=== PATIENT | male | born 1945 | race African-American/Black ===

== ENCOUNTER 2016-12-21 10:58 | Inpatient (IN) | payer OTHER ==
[~2016-12-21] VITALS: Ht 175.3 cm; Wt 73.9 kg
--- NOTE | ~2016-12-21 | EKG ---
[address] [address] ELECTROCARDIOGRAM REPORT Name: CORDELIA MATHUR Room #: 422-P ADM IN M.R.#: [id number] Admission: 12/21/16 Attend Phys: Vineet Allen MD Discharge: Date of : 49 Report #: [id number] THIS REPORT FOR: //name// [facility] ED Test Date: 2016-12-21 Test Time: 11:42:47 Pat Name: CORDELIA MATHUR Department: Room: [facility] Gender: M Unbundler: ann : 1945 Requested By: Humberto López Order Number: [id number] MD: Teddy Wade Measurements Intervals [place] Rate: 84 P: 78 MA: 158 QRS: -11 QRSD: 80 T: 25 QT: 362 QTc: 428 Interpretive Statements Sinus rhythm Compared to ECG 09/16/2016 22:44:25 Sinus tachycardia no longer present Myocardial infarct finding no longer present Electronically Signed On 12-21-2016 20:26:32 CDT by Teddy Wade [email or web address] <ELECTRONICALLY SIGNED> By: Teddy Wade MD 12/21/162025 114 114 Teddy Wade MD /SAMPSON
--- NOTE | ~2016-12-21 | D ---
[facility] [place] [address] [place] [address] DISCHARGE SUMMARY Name: KEVANCORDELIA Laureano Room #: 422-P [facility] IN .R.#: [id number] Admission: 12/21/16 Attend Phys: Vineet Allen MD Discharge: Date of : 49 Report #: [id number] THIS REPORT FOR: //name// CC: Cathryn Allen DATE OF SERVICE: 12/23/2016 HISTORY OF PRESENT ILLNESS: The patient is a 71-year-old man who came to the hospital with melena. Please refer to the admission H and P for details. In brief, the patient's hemoglobin was found to be 6.2. The patient has chronic anemia, that is related to his chronic kidney disease stage 4. HOSPITALIZATION COURSE: The patient was hospitalized at [facility]. GI team was consulted. 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 The patient received units of PRBC, which resulted in improvement in hemoglobin, at 7.9. The patient's hospital stay was uneventful, and he had no more melena, and no complications. Currently, the patient's condition is acceptable. He will be discharged home with close followup. DISCHARGE DIAGNOSES: 1. Upper gastrointestinal bleed, likely cause arteriovenous malformations, that was found on EGD. Colonoscopy is recommended as needed, if the patient has recurrent bleed. 2. Chronic kidney disease stage 4. 3. Shingles, periorbital. Much better on Valtrex and Solu-Medrol, that was started as an outpatient. 4. Hypertension. DISPOSITION: The patient is discharged home. DISCHARGE MEDICATIONS: Please refer to the home medication list. In brief, the patient is discharged home on outpatient medications, as well as PPI, that was started here. FOLLOWUP PLAN: Follow up with the primary care physician in 1-2 weeks. By: 1204 [id number] Johnson Méndez MD /nt
[~2016-12-21 10:58] MED LIST: ALLOPURINOL 10100 M1 PO; ALPHAGAN P10 ML OPHTHALMIC; APAP650 PO; ASPIR 8181 MG PO; AZOPT OPHTH1 %/10 M1 OPHTHALMIC; CARVEDILOL12.5 MG PO; CIPRO250 M1 PO; DEMADEX20 MG PO; ENTECAVIR1 MG PO; EPIVIR 150MG T150 M1 PO; FLAGYL500 MG PO; FLEXERIL PO; FLOMAX0.4 MG PO; HARVONI 90-4001 EACH PO; HEPARIN 1010 UNIT/1 IV; HYDRALAZINE 10M10 MG PO; HYDROCODON-ACE1 EAC7 PO; IRON325 PO; ISOSORBIDE MONO10 MG PO; LEVAQUIN 750 M750 MG PO; LUMIGAN2.5 M1 OP; LUMIGAN2.5 M1 OPHTHALMIC; LUMIGAN2.5 ML OP; NORCO 5-325 TA1 EACH PO; PREDNISONE 10 M10 MG PO; PROTONIX40 M1 PO; RENVELA800 MG PO; UNICOMPLEX M TA1 TA1 PO; UNKNOWN EYE DROP; VIREAD300 MG PO; VITAMINC500 PO
[2016-12-21 11:02] VITALS: BP 113/65
[2016-12-21] MEDS ORDERED: VALACYCLOVIR1000 MG PO (11:44)
[2016-12-21] MEDS ORDERED: COREG6.25 MG PO (11:44)
[2016-12-21] MEDS ORDERED: MEDROL DOSPAK21 TA1 (11:45)
[2016-12-21 11:48] LABS: ABSOLUTE NEUTROPHILS 9.3 thou/uL (1.4-8.2); BASOPHILS 0.6 % (0.0-2.0); EOSINOPHILS 0.3 % (0.0-3.0); HEMATOCRIT 24.9 % (42.0-52.0); HEMOGLOBIN 7.8 gm/dL (14.0-18.0); LYMPHOCYTES 25.6 % (24.0-44.0); MCH 27.5 pg (26.0-34.0); MCHC 31.5 g/dL (28.0-37.0); MCV 87.1 fL (80.0-100.0); MONOCYTES 10.5 % (1.0-8.0); PLATELET COUNT 400 thou/uL (150-400); RBC 2.86 mil/uL (4.50-6.00); RDW 17.4 % (10.5-14.5); WBC 14.8 thou/uL (4.0-11.0)
[2016-12-21 11:50] LABS: MANUAL DIFF NO
[2016-12-21 11:56] LABS: ANION GAP 4 mmol/L (7-16); BUN 41 mg/dL (7-18); CALCIUM 7.8 mg/dL (8.5-10.1); CHLORIDE 106 mmol/L (98-107); CO2 22 mmol/L (21-32); GLUCOSE 111 mg/dL (74-106); POTASSIUM 4.4 mmol/L (3.5-5.1); SODIUM 132 mmol/L (136-145)
[2016-12-21 12:07] LABS: ALBUMIN 1.9 g/dL (3.4-5.0); ALKALINE PHOSPHATASE 48 U/L (46-116); DIRECT BILIRUBIN < 0.1 mg/dL (<0.1-0.3); NT-PRO BRAIN NAT PEPTIDE 1045 pg/mL (<300); SGOT 16 U/L (15-37); SGPT 12 U/L (30-65); TOTAL BILIRUBIN 0.2 mg/dL (<0.1-1.0); TROPONIN-I < 0.04 ng/mL (<0.04-0.07)
[2016-12-21 12:10] LABS: URINE BILIRUBIN NEGATIVE (Negative); URINE BLOOD 1+ (Negative); URINE COLOR YELLOW; URINE GLUCOSE-RANDOM* NEGATIVE (Negative); URINE KETONES NEGATIVE (Negative); URINE NITRITE NEGATIVE (Negative); URINE PROTEIN (DIPSTICK) 2+ (Negative); URINE UROBILINOGEN 0.2 E.U./dl (0.2-1.0)
[2016-12-21 12:16] LABS: HYALINE CASTS >10 Many /LPF (None Seen); SQUAMOUS None Seen /LPF (0-3)
[2016-12-21 12:17] LABS: BACTERIA 1-9 Few /HPF (None Seen); CASTS None Seen /LPF (None Seen); CRYSTALS None Seen /LPF (None Seen); URINE RBC 0-2 Rare /HPF (0-2); URINE WBC 0-5 Rare /HPF (0-5)
[2016-12-21 14:45] VITALS: BP 103/70
[2016-12-21 19:32] VITALS: BP 111/67
[2016-12-22 00:34] LABS: RBC 2.23 mil/uL (4.50-6.00)
[2016-12-22 00:36] LABS: ABSOLUTE NEUTROPHILS 5.6 thou/uL (1.4-8.2); BASOPHILS 0.3 % (0.0-2.0); MCH 28.2 pg (26.0-34.0); MCV 88.1 fL (80.0-100.0); MONOCYTES 9.8 % (1.0-8.0); POLYS 49.9 % (36.0-66.0); RDW 17.3 % (10.5-14.5); WBC 11.2 thou/uL (4.0-11.0)
[2016-12-22 00:39] LABS: HEMATOCRIT 19.7 % (42.0-52.0)
[2016-12-22 00:40] LABS: MANUAL DIFF NO; PLATELET COUNT 318 thou/uL (150-400)
[2016-12-22 00:41] LABS: HEMOGLOBIN 6.3 gm/dL (14.0-18.0)
[2016-12-22 03:56] VITALS: BP 110/69
[2016-12-22 05:49] LABS: CALCIUM 7.5 mg/dL (8.5-10.1); CREATININE 2.9 mg/dL (0.7-1.3); MAGNESIUM 1.9 mg/dL (1.8-2.4)
[2016-12-22 05:51] LABS: POTASSIUM 5.5 mmol/L (3.5-5.1)
[2016-12-22 07:30] VITALS: BP 105/67
[2016-12-22 14:16] VITALS: BP 102/67; BP 98/59
[2016-12-22 15:34] VITALS: BP 95/62
[2016-12-22 20:00] VITALS: BP 107/66
[2016-12-22 20:58] VITALS: BP 107/66; BP 108/64; BP 112/67
[2016-12-23 04:00] VITALS: BP 115/77
[2016-12-23 07:37] VITALS: BP 111/71
[2016-12-23 09:01] LABS: ABSOLUTE NEUTROPHILS 4.5 thou/uL (1.4-8.2); BASOPHILS 0.5 % (0.0-2.0); EOSINOPHILS 1.6 % (0.0-3.0); HEMOGLOBIN 7.9 gm/dL (14.0-18.0); LYMPHOCYTES 27.7 % (24.0-44.0); MCH 28.9 pg (26.0-34.0); MCHC 32.8 g/dL (28.0-37.0); MCV 88.2 fL (80.0-100.0); MONOCYTES 10.2 % (1.0-8.0); PLATELET COUNT 307 thou/uL (150-400); RBC 2.72 mil/uL (4.50-6.00); RDW 16.5 % (10.5-14.5); WBC 7.5 thou/uL (4.0-11.0)
[2016-12-23 09:09] LABS: MANUAL DIFF NO
[2016-12-23 09:12] LABS: CALCIUM 7.9 mg/dL (8.5-10.1); CREATININE 2.7 mg/dL (0.7-1.3)
[2016-12-23] MEDS ORDERED: PANTOPRAZOLE SO40 M1 PO (12:07)
[2016-12-23 12:42] VITALS: BP 111/71
== END 2016-12-23 14:04 | disposition home or self-care (01) | DRG 377 ==
LOC: ER 10:58 → 4E 13:35 → EROBS 13:35 → 4E 14:17
PROVIDERS: Internal Medicine; Internal Medicine Endocrinology, Diabetes & Metabolism; Nurse Practitioner
PROC: 0DJ08ZZ Inspection of Upper Intestinal Tract, Via Natural or Artificial Opening Endoscopic (ICD-10-PCS; principal; 2016-12-22)
PROC: 30233N1 Transfusion of Nonautologous Red Blood Cells into Peripheral Vein, Percutaneous Approach (ICD-10-PCS; 2016-12-22)
DX: K55.21 Angiodysplasia of colon with hemorrhage (principal); E43 Unspecified severe protein-calorie malnutrition; N18.5 Chronic kidney disease, stage 5; I12.0 Hypertensive chronic kidney disease with stage 5 chronic kidney disease or end stage renal disease; B02.30 Zoster ocular disease, unspecified; H40.9 Unspecified glaucoma; D63.1 Anemia in chronic kidney disease; B18.2 Chronic viral hepatitis C; N40.0 Benign prostatic hyperplasia without lower urinary tract symptoms; Z88.8 Allergy status to other drugs, medicaments and biological substances; Z90.01 Acquired absence of eye; Z87.442 Personal history of urinary calculi; Z86.19 Personal history of other infectious and parasitic diseases; Z87.891 Personal history of nicotine dependence
CPT/HCPCS: 10183; 62110; 62900; 70005

== ENCOUNTER → 2017-01-09 | Outpatient (CLI) | payer OTHER ==
[~2017-01-09] MED LIST changes: +COREG6.25 MG PO; +MEDROL DOSPAK21 TA1; +PANTOPRAZOLE SO40 M1 PO; +VALACYCLOVIR1000 MG PO
== END ==
LOC: ULTRA 07:09
DX: B19.20 Unspecified viral hepatitis C without hepatic coma (principal); K80.80 Other cholelithiasis without obstruction; N28.1 Cyst of kidney, acquired

== ENCOUNTER → 2017-05-19 | Outpatient (CLI) | payer OTHER ==
[~2017-05-19] VITALS: Ht 177.8 cm; Wt 80.7 kg
--- NOTE | ~2017-05-19 | S ---
[facility] [place] [address] SURGICAL PATH RPT PROCEDURE Name: CORDELIA MATHUR Room #: REG PADMINI Moyer#: [id number] Admission: 05/19/17 Date of : 49 Discharge: Report #: [id number] Path Case #: [id number] PATHOLOGY REPORT COLLECTION DATE: 05/19/2017 RECEIVED DATE: 05/19/2017 SUBMITTING PHYS: Dr. Los Martinez OTHER PHYS: Dr. Cathryn Bernal * AMENDED (CORRECTED) REPORT * SPECIMEN(S) RECEIVED: A.Antrum bx R/O H. pylori * * * * * * * * * * * * FINAL DIAGNOSIS: 05/21/2017 AMENDED REPORT: This amendment is issued to correct the patient's name on the report to match the insurance card. The remainder of the report remains unchanged. Gastric mucosa, antrum, endoscopic biopsy: - Mild chronic active gastritis with features of reactive gastropathy. - Negative for intestinal metaplasia or atrophy. - Negative for Helicobacter pylori. (IUV:pit; 05/20/2017) COMMENT: Well controlled Helicobacter pylori immunohistochemical stain performed on block A1 - Negative. (IUV:pit; 05/20/2017) PATHOLOGIST: Estefany Stevens M.D. REPORT ELECTRONICALLY SIGNED BY: Estefany Stevens M.D. DATE/TIME: 05/22/2017 13:09 * * * * * * * * * * * * GROSS PATHOLOGY: Received in formalin labeled "Cordelia Mathur, BX antrum," is a segment of rhoades soft tissue measuring 0.7 cm in maximum dimension. The specimen is submitted entirely in cassette A1. (TSD; 05/19/2017) CLINICAL HISTORY: Pre-OP DX: GI bleed [facility] [address] [place] [address] SURGICAL PATH RPT PROCEDURE Name: CORDELIA MATHUR [id number] Admission: 05/19/17 Date of : 49 Discharge: Report #: [id number] Path Case #: [id number] Post-OP DX: Anemia, esophagitis, small jejunal AVM, varices INITIAL CPT CODE(S): A; 91218, 55568 Professional services performed by [facility] at [address] , [place] [address] Technical services performed by [facility] at [address] [place] [address], [facility] [address] [address]. [facility] [address] [place] [address] PHONE: [phone] DIRECTOR: Carl Miguel M.D. * * * END OF REPORT * * *
== END | disposition home or self-care (01) ==
LOC: GI 06:46
DX: K57.30 Diverticulosis of large intestine without perforation or abscess without bleeding (principal); K64.8 Other hemorrhoids; K92.2 Gastrointestinal hemorrhage, unspecified; Z88.8 Allergy status to other drugs, medicaments and biological substances; Z98.890 Other specified postprocedural states
CPT/HCPCS: 62110; 62900

== ENCOUNTER 2017-07-19 08:08 | Inpatient (IN) | payer OTHER ==
[~2017-07-19] VITALS: Ht 177.8 cm; Wt 81.2 kg
--- NOTE | ~2017-07-19 | HC ---
[facility] [place] [address] CONSULTATION Name: MATHURCORDELIA Laureano Room #: 437-P [facility] IN .R.#: [id number] Admission: 07/19/17 Attend Phys: Vineet Allen MD Discharge: Date of : 49 Report #: [id number] THIS REPORT FOR: //name// CC: Cathryn Allen REASON FOR CONSULTATION: Elevated creatinine. REASON FOR PRESENTATION: Abdominal pain. HISTORY OF PRESENT ILLNESS: A 72-year-old with multiple medical problems, most significant is chronic kidney disease with a baseline creatinine of around 2.5, heart failure with an ejection fraction of around 20%. He is also known to have lymphoproliferative disorder. He was treated few weeks ago for what seems to be appendicitis and he was deemed to be a nonsurgical candidate. He represented with abdominal pain in the right lower quadrant. This was associated with nausea and vomiting. This has been worsening in the last 24-[address] of the abdomen and pelvis revealed marked inflammatory changes. Surgical consultation was obtained. The patient reported to low grade fever. No urinary symptoms in the form of frequency or urgency. I am being consulted to manage his chronic kidney disease. PAST MEDICAL HISTORY: 1. CKD. 2. Nephrolithiasis. 3. Hypertension. 4. BPH. 5. Cardiomyopathy with an ejection fraction of 20%. 6. Shingles. 7. jejunal AV malformations. 8. History of hepatitis B and C. 9. Anemia. 10. Lymphoproliferative disorder. 11. Remote history of appendicitis. ALLERGIES: RITUXAN. MEDICATIONS: 1. Tamsulosin. 2. Carvedilol. 3. Protonix. 4. Renvela. REVIEW OF SYSTEMS: GENERAL: Low grade fever. CARDIOVASCULAR: No chest pain or palpitation. PULMONARY: No cough or hemoptysis. [facility] [address] [place] [address] CONSULTATION Name: CORDELIA MATHUR Laureano Room #: 437-P [facility] IN [facility].#: [id number] Admission: 07/19/17 Attend Phys: Vineet Allen MD Discharge: Date of : 49 Report #: [id number] GASTROINTESTINAL: As per the history of present illness. GENITOURINARY: No frequency. No urgency. NEUROLOGIC: No weakness. No seizure. SKIN: No rash or ulcerations. SOCIAL HISTORY: He denies drug or alcohol abuse. He has a good social support. He lives alone. FAMILY HISTORY: Hypertension. PHYSICAL EXAMINATION: GENERAL: Alert, oriented, seems to be in mild distress. VITAL SIGNS: Blood pressure 120/72. HEAD AND NECK: No jugular venous distention. CHEST: Clear to auscultation. CARDIOVASCULAR: Regular, with no rub. ABDOMEN: Soft with tenderness in the right lower quadrant. EXTREMITIES: Lower extremities, no edema. LABORATORY DATA: Reviewed. White blood cell count is 13.6. Sodium 134, creatinine is 3.6. UA, +1 protein. Looking back at the patient's previous levels, it does look like that he has a value of 2.9 back in December of this year when it comes to his creatinine. IMAGING: Including a CT abdomen and pelvis reviewed. ASSESSMENT, IMPRESSION, AND PLAN: 1. Acute kidney injury. 2. Chronic kidney disease. 3. Advanced heart failure. 4. Anemia. 5. Abnormal CT with marked inflammatory changes. 6. The patient's kidney function deterioration is expected in the of his inflammatory issues. As for now, we will continue with the intravenous fluid. 7. Strict input and output. 8. Avoid nephrotoxins. 9. Antibiotics. 10. Watch volume status. 11. Surgical evaluation is ongoing and we will defer further management for his inflammatory issues to the surgical team. Of note, this is the fact that he has low grade B cell lymphoma. He had required dialysis in the past and was dialyzing every Thursday, Thursday and Thursday. It is not clear to me the [facility] [address] [place] [address] CONSULTATION Name: KEVANCORDELIA Laureano Room #: 437-P [facility] IN .R.#: [id number] Admission: 07/19/17 Attend Phys: Vineet Allen MD Discharge: Date of : 49 Report #: [id number] discrepancy in the ejection fraction as there is a new echo reporting that the patient's ejection fraction is in the 50-60%. We will continue to follow along. <ELECTRONICALLY SIGNED> By: Nitza Rosa MD 07/24/17 0953 1149 1339 Nitza Rosa, /nt
--- NOTE | ~2017-07-19 | EKG ---
[address] [place] [address] ELECTROCARDIOGRAM REPORT Name: CORDELIA MATHUR Room #: 437-P ADM IN M.R.#: [id number] Admission: 07/19/17 Attend Phys: Vineet Allen MD Discharge: Date of : 49 Report #: [id number] THIS REPORT FOR: //name// [facility] Test Date: 2017-08-10 Test Time: 12:18:27 Pat Name: CORDELIA MATHUR Department: Room: 437 P Gender: M Guide Changer: Matt BETTS : 1945 Requested By: Kuldeep Rodriguez Order Number: [id number] MD: Teddy Wade Measurements Intervals [place] Rate: 75 P: 56 DC: 176 QRS: -23 QRSD: 87 T: 13 QT: 387 QTc: 433 Interpretive Statements Sinus rhythm Consider left ventricular hypertrophy Compared to ECG 12/21/2016 11:42:47 No significant changes Electronically Signed On 08-10-2017 14:03:18 [employer] by Teddy Wade [email or web address] <ELECTRONICALLY SIGNED> By: Teddy Wade MD 08/10/17 1403 17 17 Teddy Wade MD /SAMPSON
--- NOTE | ~2017-07-19 | 2DMMODE ---
[facility] [address] [place] [address] 2 D/M-MODE ECHOCARDIOGRAM Name: CORDELIA MATHUR Room #: 437-P [facility] IN ..#: [id number] Admission: 07/19/17 Attend Phys: Hannah Gomes Discharge: Date of : 49 Date of Service: 07/19/17 1630 Report #: [id number] THIS REPORT FOR: //name// APPROVED REPORT Study performed: 07/19/2017 16:11:37 EXAM: Comprehensive 2D, Doppler, and color-flow Echocardiogram Patient Location: Bedside Room #: [facility] Status: on-call BSA: 2.06 HR: 106 bpm BP: 166/101 mmHg Rhythm: Tachycardia Other Information Study Quality: Adequate Indications Pre Op. LV function. History of non-ischemic cardiomyopathy with an EF of 20%. Hx: HTN, CO 2D Dimensions RVDd: 40.05 mm LVEF(%): 40.88 (>50%) IVSd: 10.77 (7-11mm) LVOT Diam: 21.70 (18-24mm) LVDd: 49.23 mm PWd: 10.23 (7-11mm) Ascending Ao: 32.90 (22-36mm) LVDs: 39.37 (25-40mm) Aortic Root: 32.96 mm Parikh's LVEF: 40.88 % Volumes Left Atrial Volume (Systole) Single Plane 4CH: 46.45 mL Single Plane 2CH: 48.50 mL LA ESV Index: 26.00 mL/m2 Aortic Valve AoV Peak Gal.: 1.43 m/s AO Peak Gr.: 8.23 mmHg Mitral Valve E/A Ratio: 0.8 MV Decel. Time: 151.41 ms MV E Max Gal.: 0.85 m/s [facility] [address] 2 D/M-MODE ECHOCARDIOGRAM Name: CORDELIA MATHUR Room #: 437-P [facility] IN ..#: [id number] Admission: 07/19/17 Attend Phys: Hannah Gomes Discharge: Date of : 49 Date of Service: 07/19/17 1630 Report #: [id number] MV A Gal.: 1.01 m/s MV PHT: 43.91 ms IVRT: 55.36 ms Pulmonary Valve PV Peak Gal.: 1.24 m/s PV Peak Gr.: 6.14 mmHg Tricuspid Valve TR Peak Gal.: 2.82 m/s RAP Estimate: 5.00 mmHg TR Peak Gr.: 31.87 mmHg PA Pressure: 37.00 mmHg Left Ventricle The left ventricle is normal size. There is normal left ventricular wall thickness. Left ventricular systolic function is normal. LVEF is 50-55%. Mild diastolic dysfunction is present (impaired relaxation pattern). Right Ventricle The right ventricle is normal size. The right ventricular systolic function is normal. Atria The left atrium size is normal. The right atrium size is normal. Aortic Valve The aortic valve is normal in structure. No aortic regurgitation is present. There is no aortic valvular stenosis. Mitral Valve The mitral valve is normal in structure. Trace mitral regurgitation. No evidence of mitral valve stenosis. Tricuspid Valve The tricuspid valve is normal in structure. Trace to mild tricuspid regurgitation. Estimated PAP is 35-40mmHg. Pulmonic Valve The pulmonary valve is normal in structure. Trace pulmonic regurgitation. Great Vessels The aortic root is normal in size. The ascending aorta is normal in size. IVC is normal in size and collapses >50% with inspiration. [facility] [address] [place] [address] 2 D/M-MODE ECHOCARDIOGRAM Name: CORDELIA MATHUR Room #: 437-P [facility] IN .R.#: [id number] Admission: 07/19/17 Attend Phys: Hannah Gomes Discharge: Date of : 49 Date of Service: 07/19/17 1630 Report #: [id number] Pericardium There is no pericardial effusion. <Conclusion> The left ventricle is normal size. LVEF is 50-55%. The right ventricle is normal size. The right ventricular systolic function is normal. The aortic valve is normal in structure. The mitral valve is normal in structure. Trace mitral regurgitation. The tricuspid valve is normal in structure. Trace to mild tricuspid regurgitation. Estimated PAP is 35-40mmHg. The pulmonary valve is normal in structure. Trace pulmonic regurgitation. There is no pericardial effusion. <ELECTRONICALLY SIGNED> By: Kwame Spencer MD 07/19/17 163 163 29 Kwame Spencer MD /INF
--- NOTE | ~2017-07-19 | HC ---
[facility] [place] [address] [address] CONSULTATION Name: KEVANCORDELIA Laureano Room #: 437-P [facility] IN ..#: [id number] Admission: 07/19/17 Attend Phys: Vineet Allen MD Discharge: Date of : 49 Report #: [id number] THIS REPORT FOR: //name// CC: Cathryn Allen DATE OF SERVICE: 07/19/2017 REFERRING PROVIDER: Vineet Allen MD. REASON FOR CONSULT: Abdominal pain. HISTORY OF PRESENT ILLNESS: The patient is a 72-year-old male who has been seen by our service on 2 prior occasions slightly greater than one year ago with complaints of right lower quadrant abdominal pain. The patient was evaluated at that time with a CT scan of the abdomen and pelvis with oral contrast showing no filling of the appendix thereby signifying an acute appendicitis. The patient was treated with antibiotic therapy while we awaited Cardiology consultation as the patient has had a markedly decreased ejection fraction of 20% on a prior evaluation. As the patient was undergoing cardiac workup, his abdominal complaints improved markedly and he had a normal white blood cell count. As the patient was treated conservatively for a presumed diagnosis of acute appendicitis and had no complication from that with continuing to improve, he was discharged home on antibiotics, doing well. The patient did present approximately 6 months ago with an upper GI bleed from an AVM of the jejunum treated by endoscopy. The patient was in his usual state of health once again until yesterday when he developed right periumbilical abdominal pain with diarrhea and mild nausea, which improved over the past 24 hours. The patient presented for evaluation earlier today with findings on CT scan of marked inflammation in the right mid abdomen of either an acute appendicitis or less likely a proximal transverse colon issue as the transverse colon is exceedingly redundant and mobile and lies right near the medial aspect of the cecum. The patient has been admitted and given antibiotic therapy and I am asked to evaluate. On exam at the bedside today, the patient has minimal tenderness to palpation. He is afebrile with a regular rhythm. No tachycardia and is hungry. 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 Finally, he has chronic kidney disease stage IV with a baseline creatinine in the range of 3.5. [address] [address] CONSULTATION Name: KEVANCORDELIA C Room #: 437-P [facility] IN ..#: [id number] Admission: 07/19/17 Attend Phys: Vineet Allen MD Discharge: Date of : 49 Report #: [id number] HOME MEDICATIONS: Protonix, brinzolamide eye drops, bimatoprost eyedrops, sevelamer, carvedilol and Flomax. ALLERGIES: RITUXIMAB, which caused tachycardia and shortness of breath. FAMILY HISTORY: Reviewed and noncontributory. SOCIAL HISTORY: The patient does not currently use tobacco, alcohol or illicit drugs. REVIEW OF SYSTEMS: GENERAL: The patient denies nocturnal fevers or chills. HEENT: No change in vision, change in hearing. NECK: No swelling or difficulty swallowing. HEART: No chest pain or palpitations. LUNGS: No cough or shortness of breath. ABDOMEN: Mild abdominal pain with loose stools and resolved nausea. GENITOURINARY: No dysuria or hematuria. ENDOCRINE: No polyuria, polydipsia. HEMATOLOGIC: No history of bleeding or easy bruising. EXTREMITIES: No history of weakness or limited range of motion. NEUROLOGIC: No history of syncope or near syncopal episodes. SKIN AND INTEGUMENT: No history of abnormal lesions or moles. PSYCHIATRIC: No history of anxiety or depression. PHYSICAL EXAMINATION: VITAL SIGNS: Temperature is 98.0, pulse 75, respirations 15, blood pressure 162/87. He stands 5 feet 10 inches tall and weighs 194 pounds. GENERAL: He is alert and oriented, in no acute distress. HEENT: Normocephalic, atraumatic. His one pupil is equal and round, reactive to light. 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 NECK: Supple, without lymphadenopathy. Trachea is midline. HEART: Regular rate and rhythm. LUNGS: Clear to auscultation bilaterally. GASTROINTESTINAL: Abdomen soft and nondistended. He is minimally tender to deep palpation in the right mid abdomen, but does not have any guarding, rebound or peritoneal signs or symptoms. GENITOURINARY: Normal external male genitalia. EXTREMITIES: No clubbing, cyanosis or edema. NEUROLOGIC: Cranial nerves 2-12 are grossly intact. PSYCHIATRIC: Normal mood and affect. SKIN AND INTEGUMENT: No abnormal lesions or moles. LABORATORY AND X-RAY DATA: CBC shows white blood cell count of 8.6 thousand, hemoglobin 9.2, platelets 253,000. Creatinine is 3.6, which is about his baseline. Liver function enzymes are normal. Albumin is exceedingly low at [facility] [address] [place] [address] CONSULTATION Name: CORDELIA MATHUR Room #: 437-P [facility] IN [facility]#: [id number] Admission: 07/19/17 Attend Phys: Vineet Allen MD Discharge: Date of : 49 Report #: [id number] 2.0, lactic acid normal at 1.1. Urinalysis negative. CT scan of the abdomen and pelvis as per HPI shows moderate edema in the region of the medial cecum at the location where the appendix would be. The cecum lies in the upper iliac fossa with the hepatic flexure lying in normal position, but the proximal transverse colon lying anterior to the cecum. ASSESSMENT AND PLAN: A 72-year-old male with a 24-hour history of right mid abdominal pain with a prior history of appendicitis treated conservatively with antibiotic therapy. At the present time, the patient appears comfortable, states he is hungry and has very minimal pain to deep palpation. His white blood cell count is normal. It is likely that he either has a recurrent appendicitis or less likely a proximal transverse colon diverticulitis, especially in light of his prior immunosuppressed history from his lymphoproliferative disorder. It is not possible to rule out lingering typhlitis. That being said, at this time, I am awaiting Cardiology evaluation as he does have a prior history of nonischemic cardiomyopathy with an ejection fraction of 20% and after which we will have a recurrent discussion with the patient and his family regarding to proceed with operative intervention versus watchful waiting with antibiotic therapy in a conservative manner. As this will likely take time to get Cardiology evaluation once again, we will continue antibiotic therapy at this time. Reviewing the CT scan images, it shows marked inflammation which could pose a significant challenge intraoperatively with the high degree of potential risk for damage to the proximal transverse colon if this is truly just an appendicitis and raises the risk of an ileostomy if damage should occur to the proximal transverse colon. In light of that, the patient's family and himself request conservative management with antibiotic therapy and watchful waiting to see how he does. I think this is a completely reasonable approach at this time. I will continue antibiotics with serial abdominal exams and repeat labs tomorrow with a differential and a CBC to evaluate further. I sincerely appreciate this consult. I will follow closely and leave any further recommendations in the patient's chart as appropriate. <ELECTRONICALLY SIGNED> By: Sonja Clark MD, FACS 07/20/17 0933 1402 0027 Sonja Clark MD, FACS /nt
--- NOTE | ~2017-07-19 | H ---
[facility] [place] [address] HISTORY AND PHYSICAL Name: KEVANCORDELIA Laureano Room #: 437-P ADM IN .R.#: [id number] Admission: 07/19/17 Attend Phys: Vineet Allen MD Discharge: Date of : 49 Report #: [id number] THIS REPORT FOR: //name// CC: Cathryn Allen DATE OF SERVICE: 07/19/2017 CHIEF COMPLAINT: Right lower quadrant abdominal pain. HISTORY OF PRESENT ILLNESS: The patient is a 72-year-old male with history of multiple medical issues in the past including cardiomyopathy, ejection fraction of 20%, chronic kidney disease, glaucoma, hypertension, benign prostatic hypertrophy, hepatitis, and lymphoproliferative disorder, presented to the Emergency Room complaining of right lower quadrant abdominal pain. Symptoms started this morning at around 5:00 a.m. It is localized in the right lower quadrant. It has been associated with nausea and vomiting. No history of any diarrhea, no history of any fever or chills. He had a CT scan of the abdomen and pelvis done, which showed appendicitis. The patient apparently had a history of appendicitis 2 years ago and he was treated with IV antibiotic. No surgical intervention was done. No dizziness. No fever or chills. PAST MEDICAL HISTORY: Significant for lymphoproliferative disorder. 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 History of hepatitis B, C. History of chronic anemia, history of left eye removal. Kidney stone in . History of glaucoma, history of hypertension, benign prostatic hypertrophy, nonischemic cardiomyopathy, ejection fraction of 20%, chronic kidney disease. He has had a cystoscopy for kidney stone in the past. He was also treated for shingles. ALLERGIES: ALLERGIC TO RITUXAN, PLEASE LOOK AT THE NURSING DOCUMENTATION FOR THE TYPE OF ALLERGY. MEDICATIONS: Reviewed, please look at the nursing documentation. SOCIAL HISTORY: He lives alone and ambulates with a cane. No smoking, alcohol abuse, or illicit drug abuse. FAMILY HISTORY: Significant for hypertension. REVIEW OF SYSTEMS: CONSTITUTIONAL: No recent weight loss, weight gain. EYES: No change in vision. THROAT: Denies any sore throat. [facility] [address] [place] [address] HISTORY AND PHYSICAL Name: CORDELIA MATHUR Room #: 437-P [facility] IN [facility]#: [id number] Admission: 07/19/17 Attend Phys: Vineet Allen MD Discharge: Date of : 47 Report #: [id number] CARDIOVASCULAR: No chest pain, no dizziness, no palpitations. RESPIRATORY: No cough or expectoration. GASTROINTESTINAL: As above. GENITOURINARY: No dysuria, hematuria. NEUROLOGIC: No focal numbness or weakness of the extremity. PSYCHIATRIC: No anxiety or depression. The 12-point review of systems is negative other than the positive and negative dictated in the history of present illness and the review of systems. PHYSICAL EXAMINATION: VITAL SIGNS: Blood pressure is 162/87, heart rate of 70 per minute, afebrile. GENERAL: The patient is awake and alert, not in acute respiratory distress. HEENT: Pupils is around 3 mm, reactive to light on the right eye. Throat appears normal. NECK: Supple. No JVD, no bruit, no lymphadenopathy. CARDIOVASCULAR SYSTEM: S1, S2, negative S3, no murmur. CHEST: Clear on auscultation. ABDOMEN: Soft, bowel sounds present, no mass, no organomegaly. There is tenderness in the right lower quadrant, no rebound tenderness. No guarding. PERIPHERY: No pedal edema. No calf tenderness. Dorsalis pedis 1+. NEUROLOGICAL: No gross motor or sensory deficit. LABORATORY DATA: Reviewed. White count is 8.6, hemoglobin is 9.2, platelet is 253. Chemistry showed sodium of 134, BUN and creatinine are 28 and 3.6. His last creatinine on 12/23/2016 was 2.7, which is close to his baseline. His baseline creatinine is around 2.7. IMAGING STUDIES: CT of the abdomen and pelvis showed inflammatory changes suggesting appendicitis. There is bibasilar atelectasis and possible left lower lobe pneumonitis. ASSESSMENT AND PLAN: 1. Acute appendicitis. The patient will be kept n.p.o. We will continue with IV fluids and IV Zosyn. Surgery has been contacted from the Emergency Room. 2. Cardiomyopathy, ejection fraction of 20%, stable. We will continue with Coreg. 3. Deep venous thrombosis prophylaxis. Sequential compression devices on the legs for deep venous thrombosis prophylaxis. 4. Acute kidney injury, acute renal failure. His creatinine is up to 3.6. His baseline creatinine is about 2.7. We will continue with IV fluids. We will repeat his labs in the morning. The patient will need gentle IV hydration because of his cardiomyopathy. 5. History of lymphoproliferative disorder and also chronic anemia. 6. History of glaucoma. [facility] [address] [place] [address] HISTORY AND PHYSICAL Name: CORDELIA MATHUR Room #: 437-P [facility] IN .R.#: [id number] Admission: 07/19/17 Attend Phys: Vineet Allen MD Discharge: Date of : 47 Report #: [id number] Treatment plan has been explained to the patient and the patient's family at bedside in detail. <ELECTRONICALLY SIGNED> By: Vineet Allen MD 07/19/17 1331 1050 1114 Vineet Allen MD /nt
--- NOTE | ~2017-07-19 | HC ---
[facility] [place] [address] [place] [address] CONSULTATION Name: MATHURCORDELIA Laureano Room #: 437-P [facility] IN ..#: [id number] Admission: 07/19/17 Attend Phys: Vineet Allen MD Discharge: Date of : 47 Report #: [id number] THIS REPORT FOR: //name// CC: Cathryn Allen REASON FOR CONSULTATION: I was asked to evaluate concerning acute appendicitis. HISTORY OF PRESENT ILLNESS: The patient was a 72-year-old who presented on 07/19 with acute onset of right lower quadrant abdominal pain. About a year ago, he had had similar presentation and was diagnosed with acute appendicitis. He was treated conservatively with antibiotic therapy noting that the patient had B cell lymphoproliferative disorder and ejection fraction of 20%. He did improve from this and was doing reasonably well. Subsequently, he had a jejunal bleed due to an AVM about 6 months ago. Now presents with about a 24-hour history of abdominal pain associated with diarrhea. Pain radiated to the right lower quadrant. He presented to the Emergency Room. CT scan showed evidence of marked inflammation in the right lower quadrant with no feeling of the appendix and a fecalith present. The transverse colon was very redundant and mobile and was positioned near the medial aspect of the cecum. It was not totally clear that his pain is all residing from the appendix, but this is still the treating diagnosis. He has remained on Zosyn and metronidazole. No fever, chills or sweats. He has had several loose stools, but that has improved. He has had a minimally productive cough. Poor oral intake. Followup CT scan did show evidence of basilar infiltrates and appendicolith associated with his acute appendicitis. PAST MEDICAL HISTORY: Hepatitis B and hepatitis C associated with cirrhosis; B cell lymphoproliferative disorder, status post chemotherapy; ischemic cardiomyopathy; previously EF of 20%, repeat study this hospital stay shows 50%-55% by echocardiogram. H. pylori, jejunal AVM, chronic kidney disease, gastric ulcer and glaucoma. FAMILY HISTORY: Noncontributory. SOCIAL HISTORY: Nonsmoker, no significant alcohol intake. ALLERGIES: RITUXIMAB. MEDICATIONS: As noted on his MAR now on Zosyn. The metronidazole has been discontinued. REVIEW OF SYSTEMS: As noted above with no additions. He has had no dysuria or frequency. No rash or decubiti. PHYSICAL EXAMINATION: VITAL SIGNS: Afebrile and hemodynamically stable. [facility] [address] [place] [address] CONSULTATION Name: CORDELIA MATHUR Laureano Room #: 437-P [facility] IN [facility]#: [id number] Admission: 07/19/17 Attend Phys: Vineet Allen MD Discharge: Date of : 47 Report #: [id number] GENERAL: He was alert and cooperative. HEENT: Unremarkable. NECK: Supple. LUNGS: Few crackles in the bases bilaterally, no consolidation. HEART: Regular without murmur. ABDOMEN: Mildly distended, was tender predominantly in the right lower quadrant. He did have mild guarding in this region. Bowel sounds were present. RECTAL: Not performed. EXTREMITIES: Unremarkable. LABORATORY STUDIES: Sodium 135, potassium 4.5, bicarbonate of 18 and creatinine 3.2. Hemoglobin 9, platelet count 336,000, white count 10.9, 78% segs and 12% lymphs. Urinalysis unremarkable. Blood cultures negative from presentation. CT scan as noted above. IMPRESSION AND PLAN: Right lower quadrant inflammatory process still likely related to appendicitis. Given his age; however, would also need to consider other inflammatory conditions that would recur. I have reviewed surgical evaluation and note the plan for antibiotic therapy followed by hopefully elective surgical procedure. I would recommend continuing Zosyn until his abdominal symptoms calm down. He is still very tender in this region. It is encouraging that his white count has normalized. With the recurrence of this process; however, I do suspect the patient will require surgical intervention in order to prevent further relapses. Recommend continuing Zosyn and follow his symptoms. Once bowel has improved and the inflammation has subsided, would then consider surgical intervention. We will discuss further with surgical team regarding any further preoperative evaluation. <ELECTRONICALLY SIGNED> By: Deandre West MD 07/24/17 1708 2128 0036 Deandre West MD /nt
[2017-07-19 08:15] VITALS: BP 182/84
[2017-07-19 09:20] LABS: HEMATOCRIT 28.4 % (42.0-52.0); HEMOGLOBIN 9.2 gm/dL (14.0-18.0); MCH 27.2 pg (26.0-34.0); MCHC 32.5 g/dL (28.0-37.0); MCV 83.6 fL (80.0-100.0); RBC 3.39 mil/uL (4.50-6.00); RDW 18.4 % (10.5-14.5); WBC 8.6 thou/uL (4.0-11.0)
[2017-07-19] MEDS ORDERED: PROTONIX40 M2 PO (10:01)
[2017-07-19 10:23] VITALS: BP 162/87
[2017-07-19 10:38] LABS: CREATININE 3.6 mg/dL (0.7-1.3)
[2017-07-19 10:40] LABS: POTASSIUM 4.7 mmol/L (3.5-5.1)
[2017-07-19 10:44] VITALS: BP 147/80
[2017-07-19 10:53] LABS: URINE BILIRUBIN NEGATIVE (Negative); URINE BLOOD TRACE (Negative); URINE CLARITY CLEAR; URINE COLOR YELLOW; URINE GLUCOSE-RANDOM* NEGATIVE (Negative); URINE KETONES NEGATIVE (Negative); URINE LEUKOCYTES-REFLEX NEGATIVE (Negative); URINE NITRITE-REFLEX NEGATIVE (Negative); URINE PROTEIN (DIPSTICK) 1+ (Negative); URINE UROBILINOGEN 0.2 E.U./dl (0.2-1.0)
[2017-07-19 11:00] LABS: CASTS None Seen /LPF (None Seen); CRYSTALS None Seen /LPF (None Seen); SQUAMOUS 0-3 Few /LPF (0-3)
[2017-07-19 11:01] LABS: BACTERIA-REFLEX None Seen /HPF (None Seen); URINE RBC 0-2 Rare /HPF (0-2); URINE WBC-REFLEX 0-5 Rare /HPF (0-5)
[2017-07-19 11:15] LABS: TOTAL BILIRUBIN 0.2 mg/dL (<0.1-1.0); TOTAL PROTEIN 12.8 g/dL (6.4-8.2)
[2017-07-19 11:30] VITALS: BP 166/101
[2017-07-19 16:00] VITALS: BP 138/81
[2017-07-19 19:42] VITALS: BP 112/63
[2017-07-20 04:55] VITALS: BP 109/70
[2017-07-20 05:43] LABS: ABSOLUTE NEUTROPHILS 11.4 thou/uL (1.4-8.2); BASOPHILS 0.2 % (0.0-2.0); EOSINOPHILS 0.2 % (0.0-3.0); HEMATOCRIT 25.9 % (42.0-52.0); HEMOGLOBIN 8.4 gm/dL (14.0-18.0); LYMPHOCYTES 11.3 % (24.0-44.0); MCH 27.4 pg (26.0-34.0); MCHC 32.4 g/dL (28.0-37.0); MCV 84.5 fL (80.0-100.0); MONOCYTES 4.7 % (1.0-8.0); POLYS 83.6 % (36.0-66.0); RBC 3.07 mil/uL (4.50-6.00); RDW 17.8 % (10.5-14.5); WBC 13.6 thou/uL (4.0-11.0)
[2017-07-20 05:44] LABS: PLATELET COUNT 338 thou/uL (150-400)
[2017-07-20 05:59] LABS: CALCIUM 8.2 mg/dL (8.5-10.1); CREATININE 3.6 mg/dL (0.7-1.3); POTASSIUM 4.9 mmol/L (3.5-5.1)
[2017-07-20 06:10] LABS: MAGNESIUM 1.9 mg/dL (1.8-2.4)
[2017-07-20 07:45] VITALS: BP 121/72
[2017-07-20 15:45] VITALS: BP 120/71
[2017-07-20 19:56] VITALS: BP 150/88
[2017-07-21 04:00] VITALS: BP 153/90
[2017-07-21 05:33] LABS: ABSOLUTE NEUTROPHILS 11.2 thou/uL (1.4-8.2); BASOPHILS 0.3 % (0.0-2.0); EOSINOPHILS 0.4 % (0.0-3.0); HEMATOCRIT 27.1 % (42.0-52.0); HEMOGLOBIN 8.7 gm/dL (14.0-18.0); LYMPHOCYTES 11.3 % (24.0-44.0); MCH 27.2 pg (26.0-34.0); MCHC 32.1 g/dL (28.0-37.0); MCV 84.8 fL (80.0-100.0); PLATELET COUNT 345 thou/uL (150-400); RBC 3.19 mil/uL (4.50-6.00); WBC 13.4 thou/uL (4.0-11.0)
[2017-07-21 05:49] LABS: ALBUMIN 1.8 g/dL (3.4-5.0); CALCIUM 8.5 mg/dL (8.5-10.1); CREATININE 3.7 mg/dL (0.7-1.3); MAGNESIUM 2.2 mg/dL (1.8-2.4); PHOSPHORUS 4.5 mg/dL (2.5-4.9); POTASSIUM 4.6 mmol/L (3.5-5.1)
[2017-07-21 08:41] VITALS: BP 137/87
[2017-07-21 16:00] VITALS: BP 152/91
[2017-07-21 19:41] VITALS: BP 159/92
[2017-07-22 03:29] VITALS: BP 149/91
[2017-07-22 05:56] LABS: ABSOLUTE NEUTROPHILS 11.9 thou/uL (1.4-8.2); BASOPHILS 0.2 % (0.0-2.0); EOSINOPHILS 0.3 % (0.0-3.0); HEMATOCRIT 27.3 % (42.0-52.0); HEMOGLOBIN 8.8 gm/dL (14.0-18.0); LYMPHOCYTES 10.5 % (24.0-44.0); MCH 27.2 pg (26.0-34.0); MCHC 32.3 g/dL (28.0-37.0); MCV 84.1 fL (80.0-100.0); MONOCYTES 6.4 % (1.0-8.0); PLATELET COUNT 359 thou/uL (150-400); POLYS 82.6 % (36.0-66.0); RBC 3.25 mil/uL (4.50-6.00); RDW 18.4 % (10.5-14.5); WBC 14.4 thou/uL (4.0-11.0)
[2017-07-22 06:07] LABS: ALBUMIN 1.8 g/dL (3.4-5.0); CALCIUM 8.1 mg/dL (8.5-10.1); CREATININE 3.7 mg/dL (0.7-1.3); MAGNESIUM 2.1 mg/dL (1.8-2.4); PHOSPHORUS 5.3 mg/dL (2.5-4.9); POTASSIUM 4.8 mmol/L (3.5-5.1)
[2017-07-22 08:00] VITALS: BP 127/87
[2017-07-22 15:00] VITALS: BP 139/84
[2017-07-22 20:06] VITALS: BP 158/96
[2017-07-23 05:10] VITALS: BP 156/94
[2017-07-23 06:34] LABS: ABSOLUTE NEUTROPHILS 8.6 thou/uL (1.4-8.2); BASOPHILS 0.2 % (0.0-2.0); EOSINOPHILS 0.6 % (0.0-3.0); LYMPHOCYTES 12.4 % (24.0-44.0); MCH 27.4 pg (26.0-34.0); MCHC 33.3 g/dL (28.0-37.0); MCV 82.5 fL (80.0-100.0); MONOCYTES 7.9 % (1.0-8.0); PLATELET COUNT 336 thou/uL (150-400); POLYS 78.9 % (36.0-66.0); RBC 3.28 mil/uL (4.50-6.00); RDW 18.4 % (10.5-14.5); WBC 10.9 thou/uL (4.0-11.0)
[2017-07-23 06:57] LABS: ALBUMIN 1.7 g/dL (3.4-5.0); CREATININE 3.2 mg/dL (0.7-1.3); PHOSPHORUS 4.3 mg/dL (2.5-4.9); POTASSIUM 4.5 mmol/L (3.5-5.1)
[2017-07-23 08:04] VITALS: BP 170/98
[2017-07-23 16:34] VITALS: BP 151/92
[2017-07-23 19:40] VITALS: BP 148/93
[2017-07-24 03:36] LABS: HEMATOCRIT 26.3 % (42.0-52.0); HEMOGLOBIN 8.5 gm/dL (14.0-18.0); MCH 27.1 pg (26.0-34.0); MCHC 32.3 g/dL (28.0-37.0); MCV 83.9 fL (80.0-100.0); RBC 3.14 mil/uL (4.50-6.00); RDW 19.2 % (10.5-14.5); WBC 9.9 thou/uL (4.0-11.0)
[2017-07-24 04:01] LABS: ALBUMIN 1.6 g/dL (3.4-5.0); CREATININE 3.1 mg/dL (0.7-1.3); PHOSPHORUS 4.3 mg/dL (2.5-4.9); POTASSIUM 4.4 mmol/L (3.5-5.1)
[2017-07-24 05:43] VITALS: BP 133/81
[2017-07-24 07:30] VITALS: BP 148/92
[2017-07-24 15:59] VITALS: BP 130/85
[2017-07-24 20:25] VITALS: BP 131/79
[2017-07-25 03:56] VITALS: BP 136/80
[2017-07-25 05:11] LABS: ALBUMIN 1.5 g/dL (3.4-5.0); CREATININE 3.1 mg/dL (0.7-1.3); PHOSPHORUS 3.7 mg/dL (2.5-4.9); POTASSIUM 4.3 mmol/L (3.5-5.1)
[2017-07-25 07:35] VITALS: BP 146/82
[2017-07-25 08:41] LABS: HEMATOCRIT 26.5 % (42.0-52.0); HEMOGLOBIN 8.6 gm/dL (14.0-18.0); MCH 27.3 pg (26.0-34.0); MCHC 32.6 g/dL (28.0-37.0); MCV 83.8 fL (80.0-100.0); RBC 3.17 mil/uL (4.50-6.00); RDW 18.6 % (10.5-14.5); WBC 8.1 thou/uL (4.0-11.0)
[2017-07-25 08:48] LABS: CALCIUM 7.7 mg/dL (8.5-10.1); CREATININE 3.1 mg/dL (0.7-1.3); POTASSIUM 4.4 mmol/L (3.5-5.1)
[2017-07-25 15:50] VITALS: BP 120/75
[2017-07-25 19:37] VITALS: BP 133/78
[2017-07-26 04:27] LABS: ALBUMIN 1.5 g/dL (3.4-5.0); CALCIUM 8.2 mg/dL (8.5-10.1); CREATININE 2.9 mg/dL (0.7-1.3); PHOSPHORUS 3.6 mg/dL (2.5-4.9); POTASSIUM 4.2 mmol/L (3.5-5.1)
[2017-07-26 04:39] VITALS: BP 131/77
[2017-07-26 07:45] VITALS: BP 122/66
[2017-07-26 15:50] VITALS: BP 126/78
[2017-07-26 19:53] VITALS: BP 139/80
[2017-07-27 04:32] VITALS: BP 149/91
[2017-07-27 05:17] LABS: HEMATOCRIT 27.5 % (42.0-52.0); MCHC 32.8 g/dL (28.0-37.0); MCV 82.2 fL (80.0-100.0); PLATELET COUNT 324 thou/uL (150-400); RBC 3.35 mil/uL (4.50-6.00); RDW 18.9 % (10.5-14.5); WBC 8.3 thou/uL (4.0-11.0)
[2017-07-27 05:25] LABS: CALCIUM 8.1 mg/dL (8.5-10.1); CREATININE 2.6 mg/dL (0.7-1.3); POTASSIUM 4.1 mmol/L (3.5-5.1)
[2017-07-27 06:20] LABS: ABSOLUTE NEUTROPHILS 5.6 thou/uL (1.4-8.2); ANISOCYTOSIS 2+; POLYCHROMASIA OCCASIONAL
[2017-07-27 06:21] LABS: LARGE PLATELETS OCCASIONAL
[2017-07-27 09:09] VITALS: BP 121/73
[2017-07-27 14:36] VITALS: BP 121/73
[2017-07-27 15:54] VITALS: BP 124/78
[2017-07-27 20:42] VITALS: BP 128/69
[2017-07-28 03:12] VITALS: BP 112/72
[2017-07-28 05:48] LABS: ALBUMIN 1.7 g/dL (3.4-5.0); PHOSPHORUS 4.2 mg/dL (2.5-4.9); POTASSIUM 4.6 mmol/L (3.5-5.1)
[2017-07-28 07:20] VITALS: BP 116/72
[2017-07-28 15:35] VITALS: BP 139/76
[2017-07-28 19:56] VITALS: BP 120/77
[2017-07-29 03:29] VITALS: BP 127/82
[2017-07-29 05:32] LABS: HEMATOCRIT 27.7 % (42.0-52.0); HEMOGLOBIN 8.9 gm/dL (14.0-18.0); MCH 26.7 pg (26.0-34.0); MCV 83.2 fL (80.0-100.0); PLATELET COUNT 369 thou/uL (150-400); RBC 3.33 mil/uL (4.50-6.00); RDW 19.2 % (10.5-14.5); WBC 9.2 thou/uL (4.0-11.0)
[2017-07-29 05:57] LABS: ALBUMIN 1.7 g/dL (3.4-5.0); CALCIUM 8.2 mg/dL (8.5-10.1); CREATININE 3.6 mg/dL (0.7-1.3); POTASSIUM 4.7 mmol/L (3.5-5.1); TOTAL BILIRUBIN 0.2 mg/dL (<0.1-1.0); TOTAL PROTEIN 11.9 g/dL (6.4-8.2)
[2017-07-29 06:43] LABS: ANISOCYTOSIS 2+
[2017-07-29 06:47] LABS: ATYPICAL LYMPHS 2 %
[2017-07-29 07:45] VITALS: BP 141/62
[2017-07-29 15:59] VITALS: BP 115/79
[2017-07-29 20:00] VITALS: BP 131/81
[2017-07-30 04:49] VITALS: BP 133/76
[2017-07-30 08:11] VITALS: BP 106/56
[2017-07-30 08:42] LABS: ALBUMIN 1.8 g/dL (3.4-5.0); CALCIUM 8.1 mg/dL (8.5-10.1); PHOSPHORUS 5.5 mg/dL (2.5-4.9)
[2017-07-30 08:50] VITALS: BP 106/56
[2017-07-30 15:25] VITALS: BP 107/50
[2017-07-30 19:53] VITALS: BP 129/68
[2017-07-31 04:11] LABS: ALBUMIN 1.9 g/dL (3.4-5.0); CALCIUM 8.4 mg/dL (8.5-10.1); PHOSPHORUS 6.4 mg/dL (2.5-4.9); POTASSIUM 5.2 mmol/L (3.5-5.1)
[2017-07-31 04:29] LABS: CREATININE 5.5 mg/dL (0.7-1.3)
[2017-07-31 04:48] VITALS: BP 89/42
[2017-07-31 08:00] VITALS: BP 104/62
[2017-07-31 09:27] VITALS: BP 104/62
[2017-07-31 12:56] LABS: APTT 36.4 Seconds (24.5-32.8); INR 1.4; PROTIME 14.5 Seconds (9.3-11.4)
[2017-07-31 16:25] VITALS: BP 115/69
[2017-07-31 20:00] VITALS: BP 105/55
[2017-08-01 04:30] VITALS: BP 119/66
[2017-08-01 06:01] LABS: HEMATOCRIT 26.5 % (42.0-52.0); HEMOGLOBIN 8.7 gm/dL (14.0-18.0); MCH 27.2 pg (26.0-34.0); MCHC 32.7 g/dL (28.0-37.0); MCV 83.2 fL (80.0-100.0); PLATELET COUNT 347 thou/uL (150-400); RBC 3.18 mil/uL (4.50-6.00); RDW 19.6 % (10.5-14.5); WBC 10.9 thou/uL (4.0-11.0)
[2017-08-01 06:09] LABS: ALBUMIN 1.8 g/dL (3.4-5.0); CALCIUM 7.8 mg/dL (8.5-10.1); PHOSPHORUS 8.2 mg/dL (2.5-4.9); POTASSIUM 5.6 mmol/L (3.5-5.1)
[2017-08-01 06:13] LABS: CREATININE 8.3 mg/dL (0.7-1.3)
[2017-08-01 07:30] VITALS: BP 125/75
[2017-08-01 08:02] LABS: NUCLEATED RBCS 1 /100WBC
[2017-08-01 08:03] LABS: ANISOCYTOSIS 1+; HYPOCHROMASIA SLIGHT; POLYCHROMASIA SLIGHT
[2017-08-01 11:06] LABS: HEMATOCRIT 26.7 % (42.0-52.0); HEMOGLOBIN 8.5 gm/dL (14.0-18.0); MCH 26.6 pg (26.0-34.0); MCHC 31.9 g/dL (28.0-37.0); MCV 83.3 fL (80.0-100.0); RBC 3.21 mil/uL (4.50-6.00); RDW 19.7 % (10.5-14.5); WBC 12.6 thou/uL (4.0-11.0)
[2017-08-01 11:22] LABS: APTT 36.4 Seconds (24.5-32.8); INR 1.5; PROTIME 15.5 Seconds (9.3-11.4)
[2017-08-01 16:27] VITALS: BP 114/61
[2017-08-01 20:48] VITALS: BP 114/54
[2017-08-02 04:26] VITALS: BP 129/55
[2017-08-02 04:53] LABS: HEMATOCRIT 24.7 % (42.0-52.0); HEMOGLOBIN 8.3 gm/dL (14.0-18.0); MCH 27.1 pg (26.0-34.0); MCHC 33.7 g/dL (28.0-37.0); MCV 80.5 fL (80.0-100.0); RBC 3.06 mil/uL (4.50-6.00); RDW 19.7 % (10.5-14.5); WBC 8.5 thou/uL (4.0-11.0)
[2017-08-02 05:12] LABS: ALBUMIN 1.7 g/dL (3.4-5.0); CALCIUM 7.5 mg/dL (8.5-10.1); PHOSPHORUS 6.2 mg/dL (2.5-4.9)
[2017-08-02 05:29] LABS: CREATININE 6.8 mg/dL (0.7-1.3); POTASSIUM 4.5 mmol/L (3.5-5.1)
[2017-08-02 07:43] VITALS: BP 111/65
[2017-08-02 19:49] VITALS: BP 111/70
[2017-08-03 04:08] VITALS: BP 118/50
[2017-08-03 04:37] LABS: HEMATOCRIT 25.3 % (42.0-52.0); HEMOGLOBIN 8.5 gm/dL (14.0-18.0); MCH 26.7 pg (26.0-34.0); MCHC 33.7 g/dL (28.0-37.0); MCV 79.4 fL (80.0-100.0); RBC 3.19 mil/uL (4.50-6.00); RDW 19.5 % (10.5-14.5); WBC 9.5 thou/uL (4.0-11.0)
[2017-08-03 04:57] LABS: ALBUMIN 1.9 g/dL (3.4-5.0); CALCIUM 7.7 mg/dL (8.5-10.1); PHOSPHORUS 5.8 mg/dL (2.5-4.9)
[2017-08-03 06:28] VITALS: BP 117/49
[2017-08-03 12:06] LABS: KAPPA FREE LIGHT CHAINS 1259.1 mg/L (3.3-19.4); KAPPA/LAMBDA RATIO 1.25 (0.26-1.65)
[2017-08-03 16:35] VITALS: BP 127/66
[2017-08-03 22:19] VITALS: BP 137/73
[2017-08-04 04:00] VITALS: BP 144/72
[2017-08-04 05:44] LABS: HEMATOCRIT 23.8 % (42.0-52.0); HEMOGLOBIN 8.1 gm/dL (14.0-18.0); MCHC 34.2 g/dL (28.0-37.0); RBC 3.01 mil/uL (4.50-6.00); RDW 19.3 % (10.5-14.5); WBC 7.3 thou/uL (4.0-11.0)
[2017-08-04 05:59] LABS: CALCIUM 7.7 mg/dL (8.5-10.1); CREATININE 5.2 mg/dL (0.7-1.3); POTASSIUM 3.8 mmol/L (3.5-5.1)
[2017-08-04 16:07] LABS: HEP B SURFACE Ab(ANTI-HBS Non Reactive (()); HEPATITIS B SURFACE AG Negative (Negative)
[2017-08-04 16:20] VITALS: BP 136/85
[2017-08-04 21:46] VITALS: BP 137/89
[2017-08-05 04:53] VITALS: BP 114/70
[2017-08-05 08:00] VITALS: BP 140/91
[2017-08-05 14:12] LABS: GLOBULIN TOTAL 8.9 g/dL (2.2-3.9); M-SPIKE Not Observed g/dL (Not Observed)
[2017-08-05 16:29] VITALS: BP 141/73
[2017-08-05 20:32] VITALS: BP 139/82
[2017-08-06 03:51] LABS: HEMATOCRIT 22.3 % (42.0-52.0); HEMOGLOBIN 7.5 gm/dL (14.0-18.0); MCH 26.8 pg (26.0-34.0); MCHC 33.4 g/dL (28.0-37.0); MCV 80.2 fL (80.0-100.0); RBC 2.78 mil/uL (4.50-6.00); WBC 7.1 thou/uL (4.0-11.0)
[2017-08-06 04:10] LABS: CREATININE 4.9 mg/dL (0.7-1.3); POTASSIUM 4.7 mmol/L (3.5-5.1)
[2017-08-06 05:09] VITALS: BP 150/87
[2017-08-06 09:45] VITALS: BP 161/90
[2017-08-06 15:32] VITALS: BP 154/93
[2017-08-06 19:41] VITALS: BP 155/77
[2017-08-07 05:25] VITALS: BP 147/77
[2017-08-07 05:36] LABS: ALBUMIN 1.5 g/dL (3.4-5.0); CALCIUM 7.1 mg/dL (8.5-10.1); PHOSPHORUS 6.5 mg/dL (2.5-4.9); POTASSIUM 5.8 mmol/L (3.5-5.1)
[2017-08-07 05:37] LABS: CREATININE 6.6 mg/dL (0.7-1.3)
[2017-08-07 15:46] VITALS: BP 152/69
[2017-08-07 19:34] VITALS: BP 160/83
[2017-08-08 03:45] VITALS: BP 143/79
[2017-08-08 06:54] LABS: ALBUMIN 1.5 g/dL (3.4-5.0); PHOSPHORUS 5.5 mg/dL (2.5-4.9); POTASSIUM 5.4 mmol/L (3.5-5.1)
[2017-08-08 07:06] VITALS: BP 145/80
[2017-08-08 09:04] VITALS: BP 150/71
[2017-08-08 16:38] VITALS: BP 141/77
[2017-08-08 19:57] VITALS: BP 144/79
[2017-08-09 05:28] VITALS: BP 138/80
[2017-08-09 05:54] LABS: ALBUMIN 1.5 g/dL (3.4-5.0); CALCIUM 7.2 mg/dL (8.5-10.1); POTASSIUM 5.9 mmol/L (3.5-5.1)
[2017-08-09 05:58] LABS: CREATININE 6.9 mg/dL (0.7-1.3)
[2017-08-09 07:40] VITALS: BP 140/73
[2017-08-09 16:15] VITALS: BP 142/72
[2017-08-09 21:15] VITALS: BP 157/76
[2017-08-10 04:27] VITALS: BP 143/78
[2017-08-10 06:11] LABS: HEMATOCRIT 22.3 % (42.0-52.0); HEMOGLOBIN 7.3 gm/dL (14.0-18.0); MCH 26.3 pg (26.0-34.0); MCHC 32.6 g/dL (28.0-37.0); MCV 80.8 fL (80.0-100.0); RBC 2.76 mil/uL (4.50-6.00); RDW 18.5 % (10.5-14.5)
[2017-08-10 06:20] LABS: CALCIUM 7.1 mg/dL (8.5-10.1)
[2017-08-10 06:29] LABS: CREATININE 8.8 mg/dL (0.7-1.3)
[2017-08-10 12:32] VITALS: BP 143/78
[2017-08-10] MEDS ORDERED: CIPRO500 MG PO (12:42)
[2017-08-10] MEDS ORDERED: FLAGYL500 MG PO (12:42)
[2017-08-10] MEDS ORDERED: PERIDEX 0.12%473 M1 SWISH&SPIT (12:43)
[2017-08-10] MEDS ORDERED: DUONEB 2.5-0.5 M3 ML INH (12:43)
[2017-08-10] MEDS ORDERED: HYDROCODON-ACE1 EAC7 PO (12:43)
[2017-08-10 13:16] VITALS: BP 154/74
== END 2017-08-10 14:55 | disposition home or self-care (01) | DRG 871 ==
LOC: ER 08:08 → EROBS 09:55 → 4S 09:55
PROVIDERS: Emergency Medicine; Family Medicine; Hospitalist; Internal Medicine; Internal Medicine Nephrology; Nurse Practitioner Family; Radiology Vascular & Interventional Radiology; Surgery
PROC: B548ZZA Ultrasonography of Superior Vena Cava, Guidance (ICD-10-PCS; principal; 2017-07-31)
PROC: 5A1D70Z Performance of Urinary Filtration, Intermittent, Less than 6 Hours Per Day (ICD-10-PCS; principal; 2017-07-31)
PROC: B5181ZA Fluoroscopy of Superior Vena Cava using Low Osmolar Contrast, Guidance (ICD-10-PCS; principal; 2017-07-31)
PROC: 02HV33Z Insertion of Infusion Device into Superior Vena Cava, Percutaneous Approach (ICD-10-PCS; principal; 2017-07-31)
PROC: 5A1D70Z Performance of Urinary Filtration, Intermittent, Less than 6 Hours Per Day (ICD-10-PCS; 2017-08-01)
PROC: 5A1D70Z Performance of Urinary Filtration, Intermittent, Less than 6 Hours Per Day (ICD-10-PCS; 2017-08-02)
PROC: 5A1D70Z Performance of Urinary Filtration, Intermittent, Less than 6 Hours Per Day (ICD-10-PCS; 2017-08-03)
PROC: 5A1D70Z Performance of Urinary Filtration, Intermittent, Less than 6 Hours Per Day (ICD-10-PCS; 2017-08-05)
PROC: 5A1D70Z Performance of Urinary Filtration, Intermittent, Less than 6 Hours Per Day (ICD-10-PCS; 2017-08-07)
DX: A41.9 Sepsis, unspecified organism (principal); J18.9 Pneumonia, unspecified organism; E43 Unspecified severe protein-calorie malnutrition; K35.80 Unspecified acute appendicitis; N17.9 Acute kidney failure, unspecified; I42.8 Other cardiomyopathies; N18.4 Chronic kidney disease, stage 4 (severe); T86.90 Unspecified complication of unspecified transplanted organ and tissue; D47.Z1 Post-transplant lymphoproliferative disorder (PTLD); K56.609 Unspecified intestinal obstruction, unspecified as to partial versus complete obstruction; K56.7 Ileus, unspecified; E87.1 Hypo-osmolality and hyponatremia; I13.0 Hypertensive heart and chronic kidney disease with heart failure and stage 1 through stage 4 chronic kidney disease, or unspecified chronic kidney disease; H40.9 Unspecified glaucoma; N40.0 Benign prostatic hyperplasia without lower urinary tract symptoms; Z88.8 Allergy status to other drugs, medicaments and biological substances; I50.9 Heart failure, unspecified; D64.9 Anemia, unspecified; K74.60 Unspecified cirrhosis of liver; D89.2 Hypergammaglobulinemia, unspecified; Z60.2 Problems related to living alone; F32.9 Major depressive disorder, single episode, unspecified; H91.90 Unspecified hearing loss, unspecified ear; R19.00 Intra-abdominal and pelvic swelling, mass and lump, unspecified site; R34 Anuria and oliguria; E87.5 Hyperkalemia; Z86.19 Personal history of other infectious and parasitic diseases; Z87.442 Personal history of urinary calculi; I25.2 Old myocardial infarction; Z87.891 Personal history of nicotine dependence; Z92.21 Personal history of antineoplastic chemotherapy; Z79.899 Other long term (current) drug therapy
CPT/HCPCS: 10195; 32100

== ENCOUNTER → 2017-09-02 | Outpatient (CLI) | payer OTHER ==
[~2017-09-02] MED LIST changes: +CIPRO500 MG PO; +DUONEB 2.5-0.5 M3 ML INH; +PERIDEX 0.12%473 M1 SWISH&SPIT; +PROTONIX40 M2 PO
== END ==
LOC: CAT 07:50
DX: R16.1 Splenomegaly, not elsewhere classified (principal); J98.11 Atelectasis; R91.8 Other nonspecific abnormal finding of lung field

== ENCOUNTER → 2017-12-15 | Outpatient (CLI) | payer OTHER | LOC: ULTRA 08:29 | DX: K80.20 Calculus of gallbladder without cholecystitis without obstruction (principal); R16.0 Hepatomegaly, not elsewhere classified; N28.1 Cyst of kidney, acquired; K31.819 Angiodysplasia of stomach and duodenum without bleeding ==

== ENCOUNTER → 2018-01-07 | Outpatient (CLI) | payer OTHER | LOC: RAD 12:47 | DX: A15.9 Respiratory tuberculosis unspecified (principal) ==

== ENCOUNTER → 2018-05-24 | Outpatient (CLI) | payer OTHER | END | disposition home or self-care (01) | LOC: SPEC 07:48 | DX: Z45.2 Encounter for adjustment and management of vascular access device (principal); N18.9 Chronic kidney disease, unspecified; D64.9 Anemia, unspecified; K35.80 Unspecified acute appendicitis; Z88.8 Allergy status to other drugs, medicaments and biological substances; Z79.899 Other long term (current) drug therapy ==

== ENCOUNTER 2018-05-29 08:46 | Inpatient (IN) | payer OTHER ==
[2018-05-29] VITALS (10 sets, daily range): BP systolic 115–157; BP diastolic 74–91
[~2018-05-29] VITALS: Ht 175.3 cm; Wt 82.1 kg
--- NOTE | ~2018-05-29 | HC ---
[facility] [place] [address] CONSULTATION Name: KEVANCORDELIA ANNA Room #: 211-P ADM IN M.R.#: [id number] Admission: 05/29/18 Attend Phys: Franklin Walker MD Discharge: Date of : 47 Report #: [id number] THIS REPORT FOR: //name// CC: Franklin Bernal REASON FOR CONSULTATION: Preoperative evaluation. HISTORY OF PRESENT ILLNESS: The patient is a 73-year-old gentleman with a history of recurrent bouts of appendicitis. He has a predominantly idiopathic cardiomyopathy, vacillated significantly over the years and possibly due to remote chemotherapy, which he received that B-cell the lymphoma. His initial ejection fraction many years ago was in the 20% range. His most recent ejection fraction by an echocardiogram in 06/2017 demonstrated an ejection fraction of 50%-55%. Valvular heart disease was absent. He now presents with recurrent nausea, vomiting, and right lower quadrant abdominal pain. CT imaging demonstrated abnormal dilatation of the appendix with extensive surrounding inflammation of the cecum without evidence of perforation or abscess. He did receive contrast for this study and at the time of contrast administration developed a "strange feeling in his chest." This was treated with morphine and nitro and ultimately resolved. EKG during the pain was normal. He has never had pain like this before. He has never received iodinated contrast in the past. There is a direct temporal correlation between when the pain occurred and when the contrast was administered. He denies rash, shortness of breath or other systemic symptoms. MEDICATIONS: Include carvedilol 12.5 mg twice daily, Flomax 0.4 mg daily, eyedrops. PAST MEDICAL HISTORY: Medical records have been reviewed and include a history of end-stage renal disease, anemia, hepatitis B; B-cell lymphoma, treated; recurrent appendicitis. Left eye enucleation and kidney stone surgery. ALLERGIES: He is allergic to RITUXAN. SOCIAL HISTORY: He is a former smoker, quit in 1984. FAMILY HISTORY: Noncontributory. REVIEW OF SYSTEMS: All systems negative except as that noted above. PHYSICAL EXAMINATION: GENERAL: A pleasant gentleman who is alert and in no distress. VITAL SIGNS: Blood pressure is 150/70, heart rate of 110 and regular. He is afebrile, 5 feet 9 inches tall, and 175 pounds. HEENT: There are neither xanthelasma, subcutaneous xanthomata, oral mucosal or digital cyanosis or kyphoscoliosis present. [facility] [address] [place] [address] CONSULTATION Name: CORDELIA MATHUR Room #: 211-P [facility] IN .R.#: [id number] Admission: 05/29/18 Attend Phys: Franklin Walker MD Discharge: Date of : 47 Report #: [id number] CHEST: Clear to auscultation and percussion. CARDIAC: Regular rate and rhythm with normal S1, S2. No S3 gallop. Jugular venous pressure is not elevated. ABDOMEN: Demonstrates right lower quadrant tenderness. EXTREMITIES: Without cyanosis, clubbing or edema. Radial pulses are 2+. NEUROLOGIC: He is alert with a nonfocal exam. LABORATORY DATA: Sodium 126, potassium 4.8, creatinine 7.4. Troponin of 0. White count 12.9, hemoglobin 12, hematocrit 37, platelet count 214. IMAGING DATA: Chest x-ray demonstrates mild bibasilar atelectasis. EKG: Sinus tachycardia with leftward axis. IMPRESSION: 1. Appendicitis. 2. Mild nonischemic cardiomyopathy, possibly related to remote chemotherapy. 3. End-stage renal disease. 4. History of B-cell lymphoma, treated. 5. Reflux disease. 6. Hypertension. 7. Possible CONTRAST allergy, self-limited brief episode of chest pain with IODINATED CONTRAST administration. RECOMMENDATIONS: 1. Continued use of carvedilol in the perioperative setting. 2. Volume status is stable. There are no contraindications from a cardiovascular standpoint for emergent appendectomy. I have discussed these issues with the patient and his son. Thank you for asking me to participate in his care. <ELECTRONICALLY SIGNED> By: Wesley Rao MD, [facility] 05/31/18 0845 1351 0144 Wesley Rao MD, FACC /nt
--- NOTE | ~2018-05-29 | EKG ---
[facility] [address] [place] [address] ELECTROCARDIOGRAM REPORT Name: CORDELIA MATHUR Room #: [facility] [id number] Admission: 05/29/18 Attend Phys: Discharge: Date of : 47 Report #: [id number] THIS REPORT FOR: //name// [facility] ED Test Date: 2018-05-29 Test Time: 09:36:48 Pat Name: CORDELIA MATHUR Department: Room: Gender: M Administrative Staff Supervisor: as : 1945 Requested By: Deandre Haji Order Number: [id number] MD: Wesley Rao Measurements Intervals [place] Rate: 111 P: 61 [place]: 169 QRS: -31 QRSD: 84 T: 48 QT: 309 QTc: 420 Interpretive Statements Sinus tachycardia Left axis deviation Borderline low voltage, extremity leads Anteroseptal infarct, old Compared to ECG 08/10/2017 12:18:27 Septic Q waves are more prominent Electronically Signed On 05-29-2018 10:48:01 IMMUNOHEMATOLOGIST by Wesley Rao [email or web address] <ELECTRONICALLY SIGNED> By: Wesley Rao MD, [facility] 05/29/18 1048 5 5 Wesley Rao MD, [facility] /EPI
--- NOTE | ~2018-05-29 | HC ---
[facility] [place] [address] CONSULTATION Name: CORDELIA MATHUR ANNA Room #: 211-P ADM IN M.R.#: [id number] Admission: 05/29/18 Attend Phys: Franklin Walker MD Discharge: Date of : 47 Report #: [id number] THIS REPORT FOR: //name// CC: Franklin Bernal Nephrology Consultation ATTENDING PHYSICIAN: Dr. Juan. REASON FOR CONSULTATION: End-stage renal disease, on dialysis. HISTORY OF PRESENT ILLNESS: The patient is well known to our service, has been on hemodialysis for the last 11 months or so. He had been hospitalized with acute appendicitis with apparent partial rupture and localized inflammation at the end of last year. He had chronic kidney disease, had had a previous bout of acute kidney injury and dialysis a couple of years earlier. He had renal shutdown at that time and did not recover. He has been on dialysis throughout this year. He developed nausea, vomiting, abdominal pain and recurrent appendicitis for the third time this week. He presented today with the above symptoms. Had CT scan, which demonstrated acute appendicitis and he underwent a surgical procedure with removal of the appendix earlier today and is seen postoperatively in CCU. PAST MEDICAL HISTORY: He has multiple medical problems. He has had previous hepatitis B, hepatitis C. He has had previous B-cell lymphoma, treated with chemotherapy, but then lost to follow up from the oncology Service. He has been on dialysis 3 times weekly. He has very mild cardiomyopathy with most recent left ventricular ejection fraction of 50%. He has had some hypertension as well. HOME MEDICATIONS: As listed include carvedilol 12.5 mg b.i.d., sevelamer 1600 mg with meals, tamsulosin 0.4 mg daily. FAMILY HISTORY: Negative for renal disease. SOCIAL HISTORY: He is a former smoker. REVIEW OF SYSTEMS: GENERAL: He has been feeling poorly, particular this week. EYES: He had a left eye enucleated some time ago for trauma, has a prosthetic eye there. ENT: Hearing okay and swallows okay. ENDOCRINE: No diabetes or thyroid disease. RESPIRATORY: No shortness of breath, pleuritic pain, cough or hemoptysis. CARDIAC: He had some prior history of a cardiomyopathy at one point with a low [address] [place] [address] CONSULTATION Name: CORDELIA MATHUR Room #: 211-P [facility] IN [facility].#: [id number] Admission: 05/29/18 Attend Phys: Franklin Walker MD Discharge: Date of : 49 Report #: [id number] ejection fraction, which apparently resolved. GASTROINTESTINAL: No nausea, vomiting, diarrhea, etc., as mentioned. GENITOURINARY: He continues to make some urine without dysuria. He has some remote history of renal stone. NEUROLOGIC: No seizure, syncope or stroke. PHYSICAL EXAMINATION: GENERAL: This is a reasonably well-appearing gentleman, in no acute distress, seen postoperatively. SKIN: Unremarkable. SKELETAL: Shows him to be well developed, well nourished, not obese. HEENT: Extraocular movements are full in the right with reasonable vision. Mucous membranes dry. Neck veins are flat. CHEST: Clear. HEART: Regular. ABDOMEN: Quiet. EXTREMITIES: Show no edema. Pulses intact. LABORATORY DATA: Hemoglobin 12.3, white count 12.9, platelets 214. Sodium 126, potassium 4.8, chloride 91, bicarbonate 27, BUN 42, creatinine 7.4. His total protein has been elevated, I believe in a polyclonal way, but now it is even more elevated at 14.7. Actually, it has been as high as 16.1 in the past, but apparently no monoclonal protein has recently been found, albumin only 2.6. ASSESSMENT: 1. End-stage renal disease. We will continue on dialysis as indicated. Electrolytes were okay. 2. Hyponatremia. I believe this is likely pseudohyponatremia related to his very high proteins in the blood. I will check serum osmolarity. 3. Status post appendicitis with appendectomy. 4. History of B-cell lymphoma. Current status unknown. We will get hematology/oncology consult in on Thursday. 5. History of hepatitis B. 6. History of hepatitis C. 7. Status post left eye enucleation. By: [id number] Daniel Renae MD /nt
--- NOTE | ~2018-05-29 | EKG ---
[address] [place] [address] ELECTROCARDIOGRAM REPORT Name: CORDELIA MATHUR Room #: 211-P ADM IN M.R.#: [id number] Admission: 05/29/18 Attend Phys: Franklin Walker MD Discharge: Date of : 49 Report #: [id number] THIS REPORT FOR: //name// [facility] Test Date: 2018-05-30 Test Time: 08:17:01 Pat Name: CORDELIA MATHUR Department: Room: 211 P Gender: M Product Lead: NIKKI : 1945 Requested By: Wesley Rao Order Number: [id number] MD: Wesley Rao Measurements Intervals [place] Rate: 91 P: 65 [place]: 165 QRS: -12 QRSD: 90 T: 22 QT: 392 QTc: 483 Interpretive Statements Sinus rhythm Borderline low voltage, extremity leads Poor R wave progression Compared to ECG 05/29/2018 09:36:48 Sinus tachycardia no longer present Electronically Signed On 05-30-2018 9:40:04 [employer] LETTER CARRIER by Wesley Rao [email or web address] <ELECTRONICALLY SIGNED> By: Wesley Rao MD, [facility] 05/30/18 0940 6 6 Wesley Rao MD, [facility] /EPI
--- NOTE | ~2018-05-29 | HC ---
[facility] [place] [address] CONSULTATION Name: CORDELIA MATHUR ANNA Room #: 211-P [facility] IN M.R.#: [id number] Admission: 05/29/18 Attend Phys: Franklin Walker MD Discharge: Date of : 49 Report #: [id number] THIS REPORT FOR: //name// CC: Franklin Bernal HISTORY OF PRESENT ILLNESS: This 73-year-old black male presented to the Emergency Room on Thursday with complaints of abdominal pain, nausea and vomiting. He underwent CT scanning, which revealed an inflamed appendix and has now undergone appendectomy, from which he is recovering. He has a long-standing history of chronic anemia and was previously treated for Waldenstrom's macroglobulinemia by Dr. Waite. He was last seen by Dr. Streetre through the [facility] in 06/2017 and did not keep any followup visits in regard to IgG hypergammaglobulinemia/MGUS. A bone marrow had been performed in 04/2017, which showed no evidence of malignancy and his elevated IgG was felt to be on the basis of previous hepatitis B and C. He is now recovering from his surgery. PAST MEDICAL HISTORY: Significant for chronic renal failure with hemodialysis and follows with Dr. Renae. He receives Aranesp through the dialysis clinic. ALLERGIES: He previously REACTED ADVERSELY TO RITUXAN as part of his cancer therapy resulting in pulmonary edema. No further administration. FAMILY HISTORY: Negative for leukemia, lymphoma. He is a reformed smoker. FAMILY HISTORY: Not contributory. REVIEW OF SYSTEMS: As in the history of present illness and notable for no recent adenopathy. Denies any sweats, chills, fevers or unintended weight loss. PHYSICAL EXAMINATION: GENERAL: Shows an alert black male who is sitting up in bed. HEENT: Normocephalic. NECK: Supple. CHEST: Clear. CARDIOVASCULAR: S1, S2. ABDOMEN: Shows recent surgery. EXTREMITIES: No clubbing, cyanosis. NEUROLOGIC: No focal localized signs. PSYCHIATRIC: Not agitated or confused. LYMPHATICS: No suspicious adenopathy. ASSESSMENT AND PLAN: [facility] [address] [place] [address] CONSULTATION Name: MATHURCORDELIA ANNA Room #: 211-P ADM IN M.R.#: [id number] Admission: 05/29/18 Attend Phys: Franklin Walker MD Discharge: Date of : 49 Report #: [id number] 1. Previously treated Waldenstrom's macroglobulinemia. 2. 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 A protein electrophoresis has been ordered here. In review from a year ago, he had over 7 g of IgG when last seen by Dr. Streeter. We will await studies including his pathology from recent appendectomy. Thanks for notifying us of his hospitalization and allowing us to participate in his care. I can arrange for ongoing outpatient followup post-discharge. <ELECTRONICALLY SIGNED> By: Donna Witt MD 06/02/18 0819 1507 0544 Donna Witt MD /nt
--- NOTE | ~2018-05-29 | PATH ---
[facility] [address] [place] [address] PATHOLOGY RPT PROCEDURE Name: MOISES MATHUR Room #: 211-P [facility] IN M.R.#: [id number] Admission: 05/29/18 Date of : 49 Discharge: Report #: [id number] Path Case #: [id number] [facility] Accession Number: [id number] . 01 Material submitted: . APPENDIX . 01 Clinical history: . Acute appendicitis Necrotic/perforated appendix . 02 Diagnosis: Appendix, appendectomy: - Marked acute appendicitis with marked serositis. (IUV/db; 06/01/18) LBQ/06/01/2018 . 02 Electronically signed: . Estefany Stevens MD, Pathologist NPI- [id number] . 01 Gross description: . The specimen is received in formalin, labeled "Moises Mathur Sr, appendix" and consists of an appendix measuring 7.0 cm in length and ranging from 0.5-1.1 cm in diameter with mesoappendix measuring 5.0 x 1.8 cm. The serosa is rhoades-brown, necrotic, and covered with thick fibrous adhesions. Sectioning reveals a dilated lumen (up to 0.5 cm) containing brown fecal material and mucoid material. The appendix wall has marked thinning (0.1 cm or less). Blank Driller sections are submitted in A1-A3. (SDY; 05/31/2018) SYU/SYU . 02 Pathologist provided ICD-10: K35.80 . 02 CPT . 052175 Specimen Comment: A courtesy copy of this report has been sent to Specimen Comment: [phone], , . Specimen Comment: Report sent to , DR SAHU / DR DEGROOT Specimen Comment: A duplicate report has been generated due to demographic updates. Performed at: [address] [facility], [place] [id number] MD Bryan Rdz MD Phone: [phone] Performed at: [address] [address] PATHOLOGY RPT PROCEDURE Name: MOISES MATHUR Room #: 211-P ADM IN M.R.#: [id number] Admission: 05/29/18 Date of : 49 Discharge: Report #: [id number] Path Case #: [id number] [facility] [address], [place], [place] [id number] MD Estefany Stevens MD Phone: [phone]
--- NOTE | ~2018-05-29 | 2DMMODE ---
[facility] [address] [place] [address] 2 D/M-MODE ECHOCARDIOGRAM Name: CORDELIA MATHUR Room #: 211-P [facility] IN .R.#: [id number] Admission: 05/29/18 Attend Phys: Jose Angel Juan, Discharge: Date of : 49 Date of Service: 05/31/18 1010 Report #: [id number] THIS REPORT FOR: //name// APPROVED REPORT Study performed: 05/31/2018 09:24:13 EXAM: Comprehensive 2D, Doppler, and color-flow Echocardiogram Patient Location: Bedside Room #: 211 Status: routine BSA: 2.03 HR: 89 bpm BP: 142/87 mmHg Rhythm: NSR Other Information Study Quality: Adequate Indications LV function. Hx: Cardiomyopathy, ESRD, HTN 2D Dimensions RVDd: 32.78 mm IVSd: 11.01 (7-11mm) LVOT Diam: 22.38 (18-24mm) LVDd: 41.29 mm PWd: 11.61 (7-11mm) Ascending Ao: 31.52 (22-36mm) LVDs: 30.05 (25-40mm) Aortic Root: 32.73 mm Volumes Left Atrial Volume (Systole) Single Plane 4CH: 34.44 mL Single Plane 2CH: 31.52 mL LA ESV Index: 19.00 mL/m2 Aortic Valve AoV Peak Gal.: 1.16 m/s AO Peak Gr.: 5.42 mmHg LVOT Max P.05 mmHg LVOT Max V: 0.87 m/s CHIVO Vmax: 2.95 cm2 Mitral Valve E/A Ratio: 0.9 MV Decel. Time: 158.45 ms MV E Max Gal.: 0.58 m/s [facility] [address] [place] [address] 2 D/M-MODE ECHOCARDIOGRAM Name: CORDELIA MATHUR Room #: 211-P [facility] IN ..#: [id number] Admission: 05/29/18 Attend Phys: Jose Angel Juan, Discharge: Date of : 49 Date of Service: 05/31/18 1010 Report #: [id number] MV A Gal.: 0.66 m/s MV PHT: 45.95 ms IVRT: 62.28 ms Pulmonary Valve PV Peak Gal.: 0.93 m/s PV Peak Gr.: 3.47 mmHg Tricuspid Valve TR Peak Gal.: 2.90 m/s RAP Estimate: 5.00 mmHg TR Peak Gr.: 33.63 mmHg PA Pressure: 39.00 mmHg Left Ventricle The left ventricle is normal size. There is normal LV segmental wall motion. There is normal left ventricular wall thickness. Left ventricular systolic function is normal. LVEF is 55%. Mild diastolic dysfunction is present (impaired relaxation pattern). Right Ventricle The right ventricle is normal size. The right ventricular systolic function is normal. Atria The left atrium size is normal. The right atrium size is normal. Aortic Valve The aortic valve is normal in structure. No aortic regurgitation is present. There is no aortic valvular stenosis. Mitral Valve The mitral valve is normal in structure. There is no mitral valve regurgitation noted. No evidence of mitral valve stenosis. Tricuspid Valve The tricuspid valve is normal in structure. Mild tricuspid regurgitation. Estimated PAP is 40mmHg. Pulmonic Valve The pulmonary valve is normal in structure. Trace pulmonic regurgitation. Great Vessels The aortic root is normal in size. The ascending aorta is normal in size. IVC is normal in size and collapses >50% with inspiration. [facility] [address] [place] [address] 2 D/M-MODE ECHOCARDIOGRAM Name: CORDELIA MATHUR Room #: 211-P [facility] IN .R.#: [id number] Admission: 05/29/18 Attend Phys: Jose Angel Juan, Discharge: Date of : 49 Date of Service: 05/31/18 1010 Report #: [id number] Pericardium There is no pericardial effusion. <Conclusion> Left ventricular systolic function is normal. There is normal LV segmental wall motion. LVEF 55%. Mild diastolic dysfunction The aortic valve is normal in structure. No aortic regurgitation or stenosis The mitral valve is normal in structure. No mitral valve regurgitation noted. Mild tricuspid regurgitation. Estimated pulmonary artery pressure of 40mmHg. There is no pericardial effusion. <ELECTRONICALLY SIGNED> By: Wesley Rao MD, FACC 05/31/18 1010 1010 1010 Wesley Rao MD, FACC /INF
--- NOTE | ~2018-05-29 | EKG ---
[address] [address] ELECTROCARDIOGRAM REPORT Name: CORDELIA MATHUR Room #: 211-P ADM IN M.R.#: [id number] Admission: 05/29/18 Attend Phys: Franklin Walker MD Discharge: Date of : 49 Report #: [id number] THIS REPORT FOR: //name// [facility] Test Date: 2018-05-30 Test Time: 08:17:01 Pat Name: CORDELIA MATHUR Department: Room: 211 P Gender: M Night Nurse: NIKKI : 1945 Requested By: Danilo Dawkins Order Number: [id number] MD: Measurements Intervals [place] Rate: 91 P: 65 DE: 165 QRS: -12 QRSD: 90 T: 22 QT: 392 QTc: 483 Interpretive Statements Sinus rhythm Borderline low voltage, extremity leads Anteroseptal infarct, old Compared to ECG 05/29/2018 09:36:48 Sinus tachycardia no longer present Left-axis deviation no longer present Myocardial infarct finding still present [email or web address] By: 0817 6 Epiphany Epiphany, /EPI
--- NOTE | ~2018-05-29 | EKG ---
[address] [employer] [place] [address] ELECTROCARDIOGRAM REPORT Name: CORDELIA MATHUR Room #: 211-P ADM IN M.R.#: [id number] Admission: 05/29/18 Attend Phys: Franklin Walker MD Discharge: Date of : 49 Report #: [id number] THIS REPORT FOR: //name// [facility] Test Date: 2018-05-31 Test Time: 07:07:18 Pat Name: CORDELIA MATHUR Department: Room: 211 P Gender: M Recycling Worker: CARMEN : 1945 Requested By: Wesley Rao Order Number: [id number] MD: Wesley Rao Measurements Intervals [place] Rate: 90 P: 66 CT: 173 QRS: -16 QRSD: 87 T: 26 QT: 392 QTc: 480 Interpretive Statements Sinus rhythm Borderline left axis deviation Probable anteroseptal infarct, old Compared to ECG 05/30/2018 08:17:01 no significant change was found Electronically Signed On 05-31-2018 8:34:05 INTERLOCKING MACHINE OPERATOR by Wesley Rao [email or web address] <ELECTRONICALLY SIGNED> By: Wesley Rao MD, [facility] 05/31/18 0834 6 Wesley Rao MD, [facility] /EPI
--- NOTE | ~2018-05-29 | EKG ---
[address] [place] [address] ELECTROCARDIOGRAM REPORT Name: CORDELIA MATHUR Room #: 211-P ADM IN M.R.#: [id number] Admission: 05/29/18 Attend Phys: Franklin Walker MD Discharge: Date of : 49 Report #: [id number] THIS REPORT FOR: //name// [facility] ED Test Date: 2018-05-29 Test Time: 12:06:29 Pat Name: CORDELIA MATHUR Department: Room: 211 Gender: M Encoding Machine Operator: [id number] : 1945 Requested By: Deandre Haji Order Number: [id number] MD: Wesley Rao Measurements Intervals [place] Rate: 102 P: 67 ID: 169 QRS: -26 QRSD: 87 T: 34 QT: 336 QTc: 438 Interpretive Statements Sinus tachycardia Borderline left axis deviation Borderline low voltage, extremity leads Anteroseptal infarct, old Compared to ECG 05/29/2018 09:36:48 No significant changes Electronically Signed On 05-30-2018 9:24:14 PACKAGE DRIER by Wesley Rao [email or web address] <ELECTRONICALLY SIGNED> By: Wesley Rao MD, [facility] 05/30/18 0924 1206 1206 Wesley Rao MD, [facility] /EPI
[2018-05-29 09:31] LABS: URINE BLOOD 2+ (Negative); URINE CLARITY CLEAR; URINE COLOR YELLOW; URINE GLUCOSE-RANDOM* NEGATIVE (Negative); URINE KETONES TRACE (Negative); URINE LEUKOCYTES-REFLEX NEGATIVE (Negative); URINE NITRITE-REFLEX NEGATIVE (Negative); URINE PROTEIN (DIPSTICK) 2+ (Negative); URINE SPECIFIC GRAVITY 1.025 (1.005-1.035); URINE UROBILINOGEN 0.2 E.U./dl (0.2-1.0)
[2018-05-29 09:37] LABS: ICTOTEST (BILI CONFIRMATORY) Negative (Negative); URINE BILIRUBIN NEGATIVE (Negative)
[2018-05-29 09:42] LABS: AMP/METHAMP Negative (Negative); BARBITURATES Negative (Negative); BENZODIAZEPINES Negative (Negative); COCAINE Negative (Negative); METHADONE Negative (Negative); OPIATES Negative (Negative); PCP Negative (Negative)
[2018-05-29 09:56] LABS: CRYSTALS None Seen /LPF (None Seen); HYALINE CASTS 0-3 Few /LPF (None Seen); SQUAMOUS 4-10 Moderate /LPF (0-3)
[2018-05-29 09:57] LABS: FINE GRANULAR CASTS 0-3 Few /LPF (None Seen); URINE WBC-REFLEX 0-5 Rare /HPF (0-5)
[2018-05-29 09:58] LABS: BACTERIA-REFLEX 1-9 Few /HPF (None Seen); URINE RBC 0-2 Rare /HPF (0-2)
[2018-05-29 10:08] LABS: HEMATOCRIT 37.3 % (42.0-52.0); RDW 17.7 % (10.5-14.5)
[2018-05-29 10:10] LABS: HEMOGLOBIN 12.3 gm/dL (14.0-18.0); MCH 29.8 pg (26.0-34.0); MCHC 32.8 g/dL (28.0-37.0); MCV 90.6 fL (80.0-100.0); PLATELET COUNT 214 thou/uL (150-400); RBC 4.12 mil/uL (4.50-6.00); WBC 12.9 thou/uL (4.0-11.0)
[2018-05-29 10:12] LABS: ANION GAP 8 mmol/L (7-16); BUN 42 mg/dL (7-18); CALCIUM 9.3 mg/dL (8.5-10.1); CHLORIDE 91 mmol/L (98-107); CO2 27 mmol/L (21-32); CREATININE 7.4 mg/dL (0.7-1.3); GLUCOSE 89 mg/dL (74-106); POTASSIUM 4.8 mmol/L (3.5-5.1); SODIUM 126 mmol/L (136-145)
[2018-05-29 10:35] LABS: ALBUMIN 2.6 g/dL (3.4-5.0); LIPASE 259 U/L (73-393); SGOT 20 U/L (15-37); SGPT 15 U/L (30-65); TOTAL BILIRUBIN 0.6 mg/dL (<0.1-1.0); TOTAL PROTEIN 14.7 g/dL (6.4-8.2); TROPONIN-I <0.06 ng/mL (<0.06)
[2018-05-29 10:36] LABS: ABSOLUTE NEUTROPHILS 10.4 thou/uL (1.4-8.2)
[2018-05-29 10:37] LABS: ANISOCYTOSIS 1+
[2018-05-30 04:25] LABS: HEMATOCRIT 36.4 % (42.0-52.0); HEMOGLOBIN 12.2 gm/dL (14.0-18.0); MCH 30.6 pg (26.0-34.0); MCHC 33.6 g/dL (28.0-37.0); MCV 91.2 fL (80.0-100.0); RBC 3.99 mil/uL (4.50-6.00); RDW 17.2 % (10.5-14.5); WBC 10.7 thou/uL (4.0-11.0)
[2018-05-30 04:46] LABS: CALCIUM 8.7 mg/dL (8.5-10.1); CREATININE 8.1 mg/dL (0.7-1.3)
[2018-05-30 04:57] LABS: POTASSIUM 6.5 mmol/L (3.5-5.1); TROPONIN-I 1.24 ng/mL (<0.06)
[2018-05-30 05:48] VITALS: BP 142/79
[2018-05-30 07:30] VITALS: BP 11/66
[2018-05-30 12:00] VITALS: BP 109/66
[2018-05-30 16:40] VITALS: BP 105/67
[2018-05-30 19:36] VITALS: BP 97/59
[2018-05-30 23:02] VITALS: BP 97/59
[2018-05-31 03:32] VITALS: BP 126/77
[2018-05-31 04:41] LABS: ALBUMIN 2.1 g/dL (3.4-5.0); PHOSPHORUS 7.1 mg/dL (2.5-4.9)
[2018-05-31 05:06] LABS: CREATININE 6.8 mg/dL (0.7-1.3); POTASSIUM 4.6 mmol/L (3.5-5.1)
[2018-05-31 07:28] VITALS: BP 142/87
[2018-05-31 12:26] VITALS: BP 128/87
[2018-05-31 12:33] LABS: HEMATOCRIT 34.8 % (42.0-52.0); HEMOGLOBIN 11.6 gm/dL (14.0-18.0); MCH 30.5 pg (26.0-34.0); MCHC 33.3 g/dL (28.0-37.0); MCV 91.8 fL (80.0-100.0); RBC 3.79 mil/uL (4.50-6.00); RDW 18.1 % (10.5-14.5); WBC 10.7 thou/uL (4.0-11.0)
[2018-05-31 16:50] VITALS: BP 114/75
[2018-05-31 19:37] VITALS: BP 125/79
[2018-06-01 00:06] LABS: HEP B SURFACE Ab(ANTI-HBS Non Reactive (()); HEPATITIS B SURFACE AG Negative (Negative)
[2018-06-01 04:18] VITALS: BP 100/63
[2018-06-01 07:48] VITALS: BP 119/75
[2018-06-01 11:25] VITALS: BP 116/71
[2018-06-01 13:12] LABS: GLOBULIN TOTAL 8.4 g/dL (2.2-3.9); M-SPIKE Not Observed g/dL (Not Observed)
[2018-06-01 16:09] VITALS: BP 109/64
[2018-06-01 18:57] VITALS: BP 117/73
[2018-06-02 05:28] VITALS: BP 99/62
[2018-06-02 08:00] VITALS: BP 118/63
[2018-06-02 12:02] VITALS: BP 117/72
[2018-06-02 14:48] VITALS: BP 99/65
[2018-06-02 16:49] VITALS: BP 99/65
[2018-06-02 20:00] VITALS: BP 120/72
[2018-06-03 07:35] VITALS: BP 109/58
[2018-06-03 09:15] VITALS: BP 109/58
[2018-06-03] MEDS ORDERED: AUGMENTIN 500-1 EACH PO ×2 (13:41)
[2018-06-03] MEDS ORDERED: NEPHROCAPS SOFT1 CAP PO (13:41)
[2018-06-03] MEDS ORDERED: ACETAMINOPHEN325 M1 PO (13:41)
[2018-06-03] MEDS ORDERED: HYDROCODON-ACE1 EAC7 PO (13:41)
[2018-06-03] MEDS ORDERED: ATORVASTATIN CA10 MG PO (13:41)
== END 2018-06-03 17:00 | disposition home health service (06) | DRG 853 ==
LOC: ER 08:46 → EROBS 11:56 → 2N 13:42 → SICU 06-02 17:01 → ENTRNSPT 06-03 16:48 → SICU 06-03 17:00
PROVIDERS: Emergency Medicine; Hospitalist; Internal Medicine Nephrology; Surgery
PROC: 0DTJ4ZZ Resection of Appendix, Percutaneous Endoscopic Approach (ICD-10-PCS; principal; 2018-05-29)
PROC: 5A1D70Z Performance of Urinary Filtration, Intermittent, Less than 6 Hours Per Day (ICD-10-PCS; 2018-05-30)
PROC: 5A1D70Z Performance of Urinary Filtration, Intermittent, Less than 6 Hours Per Day (ICD-10-PCS; 2018-05-31)
PROC: 5A1D70Z Performance of Urinary Filtration, Intermittent, Less than 6 Hours Per Day (ICD-10-PCS; 2018-06-03)
DX: A41.9 Sepsis, unspecified organism (principal); K35.32 Acute appendicitis with perforation, localized peritonitis, and gangrene, without abscess; I21.4 Non-ST elevation (NSTEMI) myocardial infarction; N18.6 End stage renal disease; I12.0 Hypertensive chronic kidney disease with stage 5 chronic kidney disease or end stage renal disease; I42.9 Cardiomyopathy, unspecified; E87.1 Hypo-osmolality and hyponatremia; H40.9 Unspecified glaucoma; B19.20 Unspecified viral hepatitis C without hepatic coma; K21.9 Gastro-esophageal reflux disease without esophagitis; T50.8X5A Adverse effect of diagnostic agents, initial encounter; I25.10 Atherosclerotic heart disease of native coronary artery without angina pectoris; N40.0 Benign prostatic hyperplasia without lower urinary tract symptoms; I25.2 Old myocardial infarction; Y92.89 Other specified places as the place of occurrence of the external cause; Z99.2 Dependence on renal dialysis; Z87.891 Personal history of nicotine dependence; Z87.11 Personal history of peptic ulcer disease; Z87.442 Personal history of urinary calculi; Z85.72 Personal history of non-Hodgkin lymphomas; Z79.899 Other long term (current) drug therapy; Z88.8 Allergy status to other drugs, medicaments and biological substances; Z91.041 Radiographic dye allergy status
CPT/HCPCS: 10081; 15002; 32100; 50010; 50101; 50249; 50331; 50378; 50411; 50555; 50558; 50739; 50740; 50962; 51489; 51975; 52265; 53307; 53310; 54022; 54118; 56525; 56526; 56639; 62110; 62900; 70005

== ENCOUNTER → 2019-01-04 | Outpatient (CLI) | payer OTHER ==
[~2019-01-04] MED LIST changes: +ACETAMINOPHEN325 M1 PO; +ATORVASTATIN CA10 MG PO; +AUGMENTIN 500-1 EACH PO; +NEPHROCAPS SOFT1 CAP PO
== END ==
LOC: RAD 15:01
DX: R06.02 Shortness of breath (principal)

== ENCOUNTER → 2019-09-01 | Outpatient (CLI) | payer OTHER | LOC: SJCVCIMAG 14:13 → SJCVC 14:13 | DX: I42.9 Cardiomyopathy, unspecified (principal); C85.90 Non-Hodgkin lymphoma, unspecified, unspecified site; I12.9 Hypertensive chronic kidney disease with stage 1 through stage 4 chronic kidney disease, or unspecified chronic kidney disease; N18.9 Chronic kidney disease, unspecified; E78.5 Hyperlipidemia, unspecified; R00.0 Tachycardia, unspecified; G47.30 Sleep apnea, unspecified; R40.0 Somnolence; R06.83 Snoring; Z87.891 Personal history of nicotine dependence; Z79.899 Other long term (current) drug therapy ==

== ENCOUNTER 2019-09-08 10:48 | Emergency (ER) | payer OTHER ==
[~2019-09-08] VITALS: Ht 175.3 cm; Wt 86.2 kg
[2019-09-08 11:34] LABS: HEMOGLOBIN 11.1 gm/dL (14.0-18.0); MCH 29.6 pg (26.0-34.0); MCHC 32.7 g/dL (28.0-37.0); MCV 90.7 fL (80.0-100.0); PLATELET COUNT 247 thou/uL (150-400); RBC 3.75 mil/uL (4.50-6.00); RDW 18.5 % (10.5-14.5); WBC 7.3 thou/uL (4.0-11.0)
[2019-09-08 11:42] LABS: CALCIUM 8.2 mg/dL (8.5-10.1); POTASSIUM 4.3 mmol/L (3.5-5.1)
[2019-09-08 12:06] LABS: ABSOLUTE NEUTROPHILS 4.1 thou/uL (1.4-8.2); METAMYELOCYTES 1 %
[2019-09-08 12:07] LABS: ANISOCYTOSIS 2+
[2019-09-08 12:53] LABS: URINE BILIRUBIN NEGATIVE (Negative); URINE BLOOD TRACE (Negative); URINE CLARITY CLEAR; URINE COLOR YELLOW; URINE GLUCOSE-RANDOM* NEGATIVE (Negative); URINE KETONES NEGATIVE (Negative); URINE LEUKOCYTES-REFLEX NEGATIVE (Negative); URINE NITRITE-REFLEX NEGATIVE (Negative); URINE PROTEIN (DIPSTICK) 2+ (Negative); URINE SPECIFIC GRAVITY 1.015 (1.005-1.035); URINE UROBILINOGEN 0.2 E.U./dl (0.2-1.0)
[2019-09-08 13:22] LABS: BACTERIA-REFLEX 1-9 Few /HPF (None Seen); SQUAMOUS 0-3 Few /LPF (0-3); URINE RBC 0-2 Rare /HPF (0-2); URINE WBC-REFLEX 0-5 Rare /HPF (0-5)
[2019-09-08 13:23] LABS: CASTS None Seen /LPF (None Seen); CRYSTALS None Seen /LPF (None Seen)
[2019-09-08 16:01] VITALS: BP 132/74
== END 2019-09-08 16:00 | disposition home or self-care (01) ==
LOC: ER 10:48
PROVIDERS: Student in an Organized Health Care Education/Training Program
DX: R33.9 Retention of urine, unspecified (principal)

== ENCOUNTER → 2020-03-13 | Outpatient (CLI) | payer OTHER | LOC: SJCVC 14:54 | PROVIDERS: ATTEND Internal Medicine Cardiovascular Disease | DX: I42.9 Cardiomyopathy, unspecified (principal); E78.00 Pure hypercholesterolemia, unspecified; I12.9 Hypertensive chronic kidney disease with stage 1 through stage 4 chronic kidney disease, or unspecified chronic kidney disease; N18.9 Chronic kidney disease, unspecified; R00.0 Tachycardia, unspecified; G47.30 Sleep apnea, unspecified; R40.0 Somnolence; R06.83 Snoring ==

== ENCOUNTER 2020-07-15 14:04 | Inpatient (IN) | payer OTHER ==
[~2020-07-15] VITALS: Ht 152.4 cm; Wt 86.1 kg
[2020-07-15 14:14] VITALS: BP 128/65
[2020-07-15 15:15] LABS: HEMATOCRIT 34.8 % (42.0-52.0); HEMOGLOBIN 11.5 gm/dL (14.0-18.0); MCH 29.5 pg (26.0-34.0); MCHC 33.2 g/dL (28.0-37.0); MCV 88.9 fL (80.0-100.0); PLATELET COUNT 127 thou/uL (150-400); RBC 3.91 mil/uL (4.50-6.00); RDW 20.9 % (10.5-14.5); WBC 4.4 thou/uL (4.0-11.0)
[2020-07-15 15:27] LABS: URINE BILIRUBIN NEGATIVE (Negative); URINE BLOOD 2+ (Negative); URINE CLARITY CLEAR; URINE COLOR YELLOW; URINE GLUCOSE-RANDOM* NEGATIVE (Negative); URINE KETONES NEGATIVE (Negative); URINE NITRITE-REFLEX NEGATIVE (Negative); URINE PROTEIN (DIPSTICK) 3+ (Negative); URINE SPECIFIC GRAVITY 1.015 (1.005-1.035); URINE UROBILINOGEN 0.2 E.U./dl (0.2-1.0)
[2020-07-15 15:28] LABS: CALCIUM 8.3 mg/dL (8.5-10.1); CREATININE 8.3 mg/dL (0.7-1.3); POTASSIUM 3.9 mmol/L (3.5-5.1)
[2020-07-15 15:33] LABS: URINE LEUKOCYTES-REFLEX 1+ (Negative)
[2020-07-15 15:41] LABS: SQUAMOUS 0-3 Few /LPF (0-3); URINE WBC-REFLEX 0-5 Rare /HPF (0-5)
[2020-07-15 15:42] LABS: BACTERIA-REFLEX 1-9 Few /HPF (None Seen); CASTS None Seen /LPF (None Seen); CRYSTALS None Seen /LPF (None Seen); URINE RBC 3-10 Few /HPF (0-2)
[2020-07-15 15:45] LABS: ABSOLUTE NEUTROPHILS 2.4 thou/uL (1.4-8.2); ATYPICAL LYMPHS 1 %
[2020-07-15 15:46] LABS: ANISOCYTOSIS 1+; LARGE PLATELETS OCCASIONAL
[2020-07-15 21:19] VITALS: BP 136/67
[2020-07-15 21:20] VITALS: BP 142/70
[2020-07-15 22:25] VITALS: BP 141/66
[2020-07-16 01:02] VITALS: BP 146/73
[2020-07-16] MEDS ORDERED: TROSPIUM CHLORI20 MG PO (01:12)
--- NOTE | 2020-07-16 03:38 | NUR ---
Pt was an ER admit. Pt is admitted with a UTI. Pt is stable upon arrival to the floor. Vital signs stable. Pt is alert and oriented. Admission assessment and education completed. Plan of care updated. Pt is stable. Sesay catheter in place. No acute events overnight. Continue to monitor. No further needs at this time.
[2020-07-16 04:50] VITALS: BP 134/70
[2020-07-16 08:27] LABS: CALCIUM 8.3 mg/dL (8.5-10.1); POTASSIUM 4.4 mmol/L (3.5-5.1)
[2020-07-16 08:30] VITALS: BP 138/68
[2020-07-16 08:31] LABS: ALBUMIN 2.1 g/dL (3.4-5.0); MAGNESIUM 2.2 mg/dL (1.8-2.4); PHOSPHORUS 5.1 mg/dL (2.5-4.9)
--- NOTE | 2020-07-16 11:22 | NUR ---
Received awake on bed. Due medications given as prescribed, able to swallow meds w/o difficulty. On room air. Vital signs stable. On telemetry, no complains and signs of chest pain, crushing sensation and heaviness. Assisted in ADLs. On renal diet- tolerating well; no nausea, no vomiting and no abdominal pain noted. With fajardo in place- output measured and recorded accordingly. Dialysis patient- with fistula at L upper arm, no dressing noted; positive bruit and thrill; on left limb alert; a/w dialysis staff, schedule --. With NS at 100cc/hr, infusing well at R hand- intact and flushing well. Falls bundle in place. Pt with low grade fever last night- asked Dr Singh if he wanted covid swab to be done, not needed as of now; pt also requested to have Trospium restarted- a/w orders. Dialysis personnel arrived around 10:30- requested for lidocaine SQ- orders obtained; pharmacy informed re: Vancomycin post dialysis dose. To continue monitoring patient.
[2020-07-16 15:35] VITALS: BP 165/68
[2020-07-16 19:22] VITALS: BP 110/52
[2020-07-17 05:18] VITALS: BP 134/61
--- NOTE | 2020-07-17 08:02 | NUR ---
PT HAD A FEVER OF 100.8 THIS AM. BLOOD CALTURES OBTAINED YESTERDAY. TYLENOL X 1 GIVEN. PT TRANSFERRED TO 4S THIS AM. WILL CONTINUE TO MONITOR
[2020-07-17 09:08] VITALS: BP 128/58
--- NOTE | 2020-07-17 09:19 | NUR ---
ASSESSMENT: CM REVIEWED CHART AND SPOKE WITH PATIENT. PT IS ALERT AND ORIENTED X4. PT WAS ADMITTED DUE TO FEVER AND NOT FEELING WELL HE REPORTS. PT REPORTS LIVING IN AN APT ALONE AND HAS NO STEPS TO ENTER. PT HAS HX OF ESRD AND GETS DIALYSIS MWF AT [facility] CHAIRTIME IS 1100 HE REPORTS. CM NOTIFIED [facility] OF PTS ADMISSION AND FAXED SOME CLINICAL TO UPDATE THEM AT [phone]. PT REPORTS DRIVING HIMSELF TO AND FROM DIALYSIS. PT REPORTS HE ALSO HAS A CAREGIVER THAT COMES M-F FOR 2.5 HOURS. PT HAS HAD [facility] IN THE PAST BUT NOT CURRENTLY. PT DOES NOT ANTICIPATE HAVING ANY NEEDS AT DISCHARGE. CM WILL CONTINUE TO FOLLOW TO ASSIST NEEDED.
[2020-07-17] MEDS ORDERED: VANCO 500500 MG/100 IV (09:25)
[2020-07-17 16:57] VITALS: BP 128/58
--- NOTE | 2020-07-17 17:30 | NUR ---
PT TRANSFERRED AT 0730 FROM CCU ALERT AND IN NO ACUTE DISTRESS. REPORT TAKEN FROM OFFGOING NOC RN. STATED PT NEEDED COVID SWAB TO BE ABLE TO RETURN FOR OUTPT DIALYSIS TOMORROW. PT HAD BEEN HAVING FEVERS. NOTIFIED COVID TEST WAS POSITIVE. PT STATED HE DID NOT FEEL SICK. NO COUGH. SON AT BEDSIDE. PLAN FOR PT TO DISCHARGE HOME PLANNED AND WILL HAVE DIALYSIS AT 1600 TOMORROW PER JOINER. TEMP 100.1.
== END 2020-07-17 17:20 | disposition home or self-care (01) | DRG 871 ==
LOC: ER 14:04 → 2N 18:15 → EROBS 18:15 → 2N 21:59 → 4S 07-17 08:03
PROVIDERS: Emergency Medicine; ADMIT Hospitalist; ATTEND Hospitalist
PROC: 5A1D70Z Performance of Urinary Filtration, Intermittent, Less than 6 Hours Per Day (ICD-10-PCS; principal; 2020-07-16)
DX: A41.9 Sepsis, unspecified organism (principal); U07.1 COVID-19; N18.6 End stage renal disease; E43 Unspecified severe protein-calorie malnutrition; N39.0 Urinary tract infection, site not specified; I42.8 Other cardiomyopathies; E46 Unspecified protein-calorie malnutrition; I12.0 Hypertensive chronic kidney disease with stage 5 chronic kidney disease or end stage renal disease; Z16.21 Resistance to vancomycin; N13.9 Obstructive and reflux uropathy, unspecified; N40.1 Benign prostatic hyperplasia with lower urinary tract symptoms; R33.8 Other retention of urine; G47.00 Insomnia, unspecified; B95.2 Enterococcus as the cause of diseases classified elsewhere; Z60.2 Problems related to living alone; Z68.37 Body mass index [BMI] 37.0-37.9, adult; Z87.442 Personal history of urinary calculi; Z86.19 Personal history of other infectious and parasitic diseases; I25.2 Old myocardial infarction; Z88.8 Allergy status to other drugs, medicaments and biological substances; Z91.041 Radiographic dye allergy status; Z87.891 Personal history of nicotine dependence; Z99.2 Dependence on renal dialysis
CPT/HCPCS: 10081; 32100

== ENCOUNTER 2020-07-30 12:17 | Emergency (ER) | payer OTHER ==
[~2020-07-30] VITALS: Ht 177.8 cm; Wt 68.0 kg
[~2020-07-30 12:17] MED LIST changes: +TROSPIUM CHLORI20 MG PO; +VANCO 500500 MG/100 IV
[2020-07-30 13:51] LABS: URINE BILIRUBIN NEGATIVE (Negative); URINE BLOOD 2+ (Negative); URINE CLARITY CLEAR; URINE COLOR YELLOW; URINE GLUCOSE-RANDOM* NEGATIVE (Negative); URINE KETONES NEGATIVE (Negative); URINE LEUKOCYTES-REFLEX 1+ (Negative); URINE NITRITE-REFLEX NEGATIVE (Negative); URINE PROTEIN (DIPSTICK) 2+ (Negative); URINE UROBILINOGEN 0.2 E.U./dl (0.2-1.0)
[2020-07-30 14:01] LABS: SQUAMOUS 0-3 Few /LPF (0-3)
[2020-07-30 14:02] LABS: CASTS None Seen /LPF (None Seen); CRYSTALS None Seen /LPF (None Seen)
[2020-07-30 14:04] LABS: BACTERIA-REFLEX 1-9 Few /HPF (None Seen); URINE RBC 3-10 Few /HPF (0-2); URINE WBC-REFLEX 0-5 Rare /HPF (0-5)
[2020-07-30] MEDS ORDERED: KEFLEX500 M1 PO (14:49)
[2020-07-30 15:14] VITALS: BP 102/54
== END 2020-07-30 15:14 | disposition home or self-care (01) ==
LOC: ER 12:17
PROVIDERS: Physician Assistant
DX: N39.0 Urinary tract infection, site not specified (principal); Z20.828 Contact with and (suspected) exposure to other viral communicable diseases; I12.9 Hypertensive chronic kidney disease with stage 1 through stage 4 chronic kidney disease, or unspecified chronic kidney disease; N18.4 Chronic kidney disease, stage 4 (severe); I25.2 Old myocardial infarction; Z87.891 Personal history of nicotine dependence; Z91.041 Radiographic dye allergy status; Z88.8 Allergy status to other drugs, medicaments and biological substances; Z79.899 Other long term (current) drug therapy; Z99.2 Dependence on renal dialysis; Z87.442 Personal history of urinary calculi

== ENCOUNTER → 2020-09-13 | Outpatient (CLI) | payer OTHER ==
[~2020-09-13] MED LIST changes: +KEFLEX500 M1 PO
== END ==
LOC: SJCVCIMAG 09:08
PROVIDERS: ATTEND Internal Medicine Cardiovascular Disease
DX: R00.0 Tachycardia, unspecified (principal); I25.5 Ischemic cardiomyopathy; E78.5 Hyperlipidemia, unspecified; I12.9 Hypertensive chronic kidney disease with stage 1 through stage 4 chronic kidney disease, or unspecified chronic kidney disease; N18.9 Chronic kidney disease, unspecified; K21.9 Gastro-esophageal reflux disease without esophagitis; H40.9 Unspecified glaucoma; G47.33 Obstructive sleep apnea (adult) (pediatric); Z86.19 Personal history of other infectious and parasitic diseases; Z85.89 Personal history of malignant neoplasm of other organs and systems; Z79.899 Other long term (current) drug therapy; Z87.891 Personal history of nicotine dependence; Z88.8 Allergy status to other drugs, medicaments and biological substances

== ENCOUNTER → 2021-02-04 | Outpatient (CLI) | payer OTHER ==
--- NOTE | 2021-02-13 09:47 | SLE ---
[facility] [place] [address] POLYSOMNOGRAPHY STUDY Name: CORDELIA MATHUR Room #: REG PADMINI TadeoVerenice#: [id number] Admission: 02/04/21 Attend Phys: Curt Barragan MD Discharge: Date of : 49 Report #: [id number] THIS REPORT FOR: cc: Cathryn Bernal MD, Nora P. MD Khan, Aman U. MD ~ DATE OF SERVICE: 02/04/2021 SLEEP STUDY ATTENDING PHYSICIAN: Dr. Dung Carrillo. The patient is 76-year-old who weighs 190 pounds with a BMI of 27.7. The patient has a history of complex sleep apnea, which has been ineffective to treat with CPAP. The patient had a high central apnea index previously. The patient was referred for BiPAP titration study with possible backup. During the night study, the patient spent 479 minutes in bed and slept for 364 minutes with a sleep efficiency of 76%. Sleep latency was 1.9 minutes with a REM latency of 70.5 minutes. Sleep architecture showed increased stage I and stage II sleep, normal slow wave and normal REM sleep. EKG monitoring revealed an average heart rate of 80 beats per minute. PVCs were observed. No sustained arrhythmias seen. PLMS are seen at an index of 30 per hour and 3 per hour caused EEG arousals. The patient was started on BiPAP at a pressure of 8/4. Pressure was increased up to 15/7. At that pressure, the patient's central apneas increased significantly. The patient then was added on a backup rate of 12. At the pressure of 15/7 with a backup rate of 12, the patient slept for 240 minutes. The patient's AHI was reduced to 5.7 per hour and oxygen saturation remained above 88%. IMPRESSION: 1. 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 2. Moderate periodic limb movements without any significant EEG arousals. RECOMMENDATIONS: 1. BiPAP at a pressure of 15/7 with a backup rate of 12, should be used on a nightly basis. 2. Followup in 4-6 weeks to assess compliance with BiPAP and to document clinical improvement. 3. Avoid LENS GRINDER ROUGH depressants. 4. The patient has cardiomyopathy by history. Treatment of cardiomyopathy will [address] [address] POLYSOMNOGRAPHY STUDY Name: CORDELIA MATHUR [id number] Admission: 02/04/21 Attend Phys: Curt Barragan MD Discharge: Date of : 49 Report #: [id number] improve central component of patient's sleep apnea. 5. Caution regarding driving until symptoms of sleep apnea resolve with the use of BiPAP. 6. PLMS does not need to be treated unless the patient has symptoms of restless legs during the day. <ELECTRONICALLY SIGNED> By: Curt Barragan MD 02/13/21 0947 51 [id number] Curt Barragan MD /chante
== END ==
LOC: SLEEPLAB 12-18 11:11
PROVIDERS: ATTEND Internal Medicine Critical Care Medicine
DX: G47.31 Primary central sleep apnea (principal); I42.9 Cardiomyopathy, unspecified; K21.9 Gastro-esophageal reflux disease without esophagitis; I10 Essential (primary) hypertension

== ENCOUNTER → 2021-05-07 | Outpatient (CLI) | payer OTHER | LOC: SJCVC 12:18 → SJCVCIMAG 12:18 | PROVIDERS: ATTEND Internal Medicine Cardiovascular Disease | DX: K80.20 Calculus of gallbladder without cholecystitis without obstruction (principal); N26.1 Atrophy of kidney (terminal); I42.9 Cardiomyopathy, unspecified; E78.00 Pure hypercholesterolemia, unspecified; N18.9 Chronic kidney disease, unspecified; G47.30 Sleep apnea, unspecified; Z86.19 Personal history of other infectious and parasitic diseases; Z87.891 Personal history of nicotine dependence; Z79.899 Other long term (current) drug therapy; Z88.8 Allergy status to other drugs, medicaments and biological substances ==